=== PATIENT | male | born 1935 | race Caucasian/White ===

== ENCOUNTER → 2018-07-05 10:30 | Outpatient (CLI) | payer MEDICARE, SELFPAY ==
[2018-06-30 15:17] VITALS: BMI 36.1
--- NOTE | 2018-07-05 11:28 | RAD_ITS ---
STUDY: X-RAY CHEST REASON FOR EXAM: Male, 82 years old. Preoperative evaluation for heart catheterization. TECHNIQUE: Frontal and lateral views of the chest. COMPARISON: None. FINDINGS: The lungs are hyperexpanded. There are granulomatous calcifications. There is no demonstrated pleural abnormality. There is borderline cardiomegaly. Normal mediastinum and saji. Normal visualized pulmonary arteries. There is atherosclerotic calcification of the aortic arch with tortuosity. Normal visualized thoracic spine. Normal visualized ribs, clavicles, and shoulders. There is no demonstrated abnormality of the visualized soft tissue structures of the upper abdomen. RAD/Chest PA and Lateral IMPRESSION: Borderline cardiomegaly with hyperexpansion. No acute or active cardiopulmonary disease. Electronically Signed: Rashad Fonseca MD at 11:42 EDT , Service support ,
[2018-07-05 11:55] LABS: Partial Thromboplast Time 26.4 Seconds (24.1-36.2)
[2018-07-05 12:00] LABS: Absolute Lymphocyte Count 2.67 X10^3/ul (0.83-4.51); Basophil# 0.03 X10^3/uL; Basophil% 0.4 % (0-1); Eosinophil# 0.17 X10^3/uL; Eosinophils% 2.4 % (0-5); Hematocrit 42.5 % (40-54); Hemoglobin 14.3 g/dl (13.0-16.5); Lymphocyte # 2.67 X10^3/ul (4.0); Lymphocyte % 38.4 % (19-41); Mean Corp Hgb Conc 33.6 g/gl (32-36); Mean Corpuscular Volume 95.1 fL (80-94); Mean Platelet Vol. 10.3 fl (6.2-12.0); Monocyte% 1.4 % (0-10); Neutrophil # 3.98 X10^3/uL (2.7-7.7); Neutrophil % 57.3 % (47-70); Platelet Count 195 K/mm3 (150-450); RBC Distribution Width CV 15.4 % (11.6-14.6); RBC Distribution Width SD 51.9 fl (35.1-43.9); Red Blood Count 4.47 M/mm3 (4.6-6.2)
[2018-07-05 12:02] LABS: POSITIVE COUNT NO; POSITIVE DIFFERENTIAL NO; POSITIVE MORPHOLOGY NO
[2018-07-05 12:17] LABS: Anion Gap 7 (5-15); BUN 11 mg/dL (7-18); BUN/Creat Ratio 13.3 RATIO (10-20); Chloride 110 mmol/L (98-107); Creatinine, Serum 0.83 mg/dL (0.70-1.30); EST Glomerular Filtration Rate 94 mL/min (>60); Est Glom Filt Rate - Afr Amer 114 mL/min (>60); Glucose 87 mg/dL (74-106); Potassium 3.9 mmol/L (3.5-5.1); Sodium Level 137 mmol/L (136-145)
== END ==
PROVIDERS: Family Provider Family Medicine; PCP Family Medicine; Referring Provider Internal Medicine Cardiovascular Disease; Visit Provider Internal Medicine Cardiovascular Disease
DX: R07.9 Chest pain, unspecified (principal); I35.0 Nonrheumatic aortic (valve) stenosis; I35.1 Nonrheumatic aortic (valve) insufficiency; I34.0 Nonrheumatic mitral (valve) insufficiency; I10 Essential (primary) hypertension; E78.00 Pure hypercholesterolemia, unspecified; R09.89 Other specified symptoms and signs involving the circulatory and respiratory systems
CPT/HCPCS: 36415; 71046; 80048; 85025; 85610; 85730

== ENCOUNTER → 2018-07-08 09:00 | Day surgery (SDC) | payer MEDICARE, SELFPAY ==
[2018-06-30 15:17] VITALS: BMI 36.1
[2018-07-07 07:54] VITALS: BMI 35.9
[2018-07-08 11:55] LABS: Blood Gas Specimen Type VEN; VBG BASE EXCESS -3 mmol/L (-1.0-3.5); VBG Bicarbonate 23 mmol/L (22-26); VBG Oxygen Content 24 mmol/L (23-33); VBG PO2 35 mmHg (25-40); VBG SO2 67 % (50-70); VBG pCO2 38.1 mmHg (41-51); VBG pH 7.38 (7.32-7.42)
[2018-07-08 11:55] LABS: Base Excess -2 mmol/L (-2 to +2); Bicarbonate 22.5 mmol/L (22-26); Blood Gas Specimen Type ART; PO2 54 mmHG (75-100); SO2 87 % (95-99); Total Carbon Dioxide 24 mmol/L; pCO2 36.8 mmHg (35-45)
[2018-07-08 11:55] LABS: Blood Gas Specimen Type VEN; VBG BASE EXCESS -3 mmol/L (-1.0-3.5); VBG Bicarbonate 23 mmol/L (22-26); VBG Oxygen Content 24 mmol/L (23-33); VBG PO2 33 mmHg (25-40); VBG SO2 62 % (50-70); VBG pCO2 38.1 mmHg (41-51); VBG pH 7.38 (7.32-7.42)
[2018-07-08 11:55] LABS: Blood Gas Specimen Type VEN; VBG BASE EXCESS -3 mmol/L (-1.0-3.5); VBG Bicarbonate 22 mmol/L (22-26); VBG Oxygen Content 23 mmol/L (23-33); VBG PO2 40 mmHg (25-40); VBG SO2 75 % (50-70); VBG pCO2 36.2 mmHg (41-51)
--- NOTE | 2018-07-08 12:31 | CL.D_ITS ---
Patient Name: RICHARD MASTERS Study Date: 07/08/2018 Performing: Chaparro Cardona MD Ht: 70.07 inches 178 cm : 1935 Wt: 249.12 lbs 113 kg Age: 82 Gender: male BSA: 2.29 PROCEDURE(S) PERFORMED IH35-WIO/LHC/COR/LV CLINICAL PROFILE AND INDICATIONS Indications: Suspected CAD, Valvular Disease Heart Failure: None Stress/Imaging Stress/Image Study Performed: No Angina Classification Anginal Classification w/in 2 Weeks: CCS III CAD Presentations: Stable angina. CONCLUSIONS Right heart pressures - mildly elevated The patient has pulmonary hypertension which is mild. Intracardiac shunting: None Elevated Left Ventricular End Diastolic Pressure Normal LV size, wall motion,and systolic function LVEF: by LV gram 65 % [place] Multivessel CAD Aortic Valve Stenosis- Moderate Mitral Valve Insufficiency Mild RECOMMENDATIONS Medical therapy Surgery consult for coronary revascularization +/- AVR DESCRIPTION OF PROCEDURE The patient arrived to the procedure lab. The risks and benefits of the procedure as well as a full d escription of our services here and current unavailability of surgical backup were fully explained to the patient and/or their significant other prior to the catheterization. The Timeout was completed, verifying the correct patient and procedure. The patient's procedural site was prepped and draped in the usual fashion. Local anesthetic was given subcutaneously to right groin region with Lidocaine 2%. Using a modified Seldinger technique, arterial access was obtained via the right femoral artery, a 4 Fr sheath was inserted Venous access was obtained via the right femoral vein, a 7Fr sheath was insert ed. A 7Fr thermal dilution catheter was inserted and right heart pressures were recorded, it was then advanced to PA position for cardiac outputs. Thermal dilution cardiac outputs were then recorded. O2 saturations were then obtained. Left Ventriculography was performed in LÓPEZ projection using a 4 Fr. Pigtail catheter. LV to AO pullback pressures were then recorded. The Thermal dilution catheter was then removed. Left Coronary Artery selective angiography was performed in multiple views using a 4 Fr. JL4 catheter. Right Coronary Artery selective angiography was then performed in multip le views using a 4 Fr. JR4 catheter.The arterial sheath was pulled and manual compression applied unt il hemostasis is achieved.. The venous sheath was then pulled and manual compression applied until he mostasis achieved CORONARY ANGIOGRAPHY DOMINANCE: Right Dominant LEFT HEART ASSESSMENT Left Ventricular Ejection Fraction: by LV Gram 65 % Normal LV wall motion Elevated Left Ventricular End Diastolic Pressure LVEDP: 17 mmHg RIGHT HEART ASSESSMENT Thermal CO: 6 Thermal CI: 2.62 Pam CO: 13.05 Pam CI: 5.7 PW: 17/18 13 PA: 34/11 20 RV: 33/0 11 RA: 9/7 5 PVR: 93 SVR: 1080 Aortic Valve Area: 2.03 Aortic Valve Index: 0.89 Aortic Valve Mean Gradient: 20.3 Mitral Valve Area: 2.72 Mitral Valve index: 1.19 Mitral Valve Mean Gradient: 7.7 Right Heart pressures - elevated Pulmonary Hypertension Mild Intracardiac shunting: None LEFT MAIN: Distal: Eccentric: 25 % Stenosis LEFT ANTERIOR DESCENDING ARTERY: PROX LAD: Eccentric: 50 - 75 % Stenosis MID LAD: Mild luminal irregularities DIAGONAL 1: Proximal - 50 - 75 % Stenosis CIRCUMFLEX ARTERY: Mild luminal irregularities DISTAL CIRC: 85 % Stenosis OM 1: Proximal - 85 % Stenosis RIGHT CORONARY ARTERY: Mild luminal irregularities PROX RCA: 75 % Stenosis VALVE FINDINGS: Aortic Valve Stenosis - moderate Mitral Valve Insufficiency - Grade 1 AORTIC ROOT: Angiographically normal COMPLICATIONS No Complications PROCEDURE MEDICATIONS Versed 1 mg IV Versed 1 mg IV Oxygen: 2 L/min via nasal cannula SUMMARY OF HEMODYNAMIC DATA Time AIR REST ECG 09:24:52 RA 9 (5) SV 11:01:35 RV 33/0, 11 11:01:49 PW 17/18 (13) PV 11:02:17 PA 34/11 (20) PA 11:02:29 LV 154/0, 16 11:07:10 PW / (13) 11:07:10 LV 153/0, 17 11:07:16 PW 16/18 (13) 11:07:16 LV 157/3, 19 11:08:46 PW 18/25 (17) 11:08:46 LVp 150/8, 16 11:09:00 AOp 120/59 (86) 11:09:05 AO 124/57 (86) SA 11:09:44 PA 35/13 (23) 11:10:17 RV 38/1, 11 11:10:25 RA 12/11 (8) 11:10:37 AO 120/61 (86) 11:12:31 Valve Area (c P-P/ms Time AIR REST Mitral 2.72 7.7 mn/285 ms 11:07:10 Aortic 2.03 20.3 mn/176 ms30.0 pk/176 ms 11:09:00 Type SV CO (l/m) CI (l/m/ HR Time AIR REST Thermal 72.30 6.00 2.62 83 09:24:52 Pam 157.20 13.05 5.70 83 09:24:52 Label % O2 Pres/Loc Time AIR REST SVC 67 11:12:14 IVC 75 SV 11:14:00 PA 62 PA 11:14:08 AO 87 PV 11:14:12 Signed By Chaparro Cardona MD On 07/08/2018 12:30:36 PM Chaparro Cardona MD
== END ==
PROVIDERS: Family Provider Family Medicine; PCP Family Medicine; Referring Provider Internal Medicine Cardiovascular Disease; Visit Provider Internal Medicine Cardiovascular Disease
DX: I25.10 Atherosclerotic heart disease of native coronary artery without angina pectoris (principal); I35.0 Nonrheumatic aortic (valve) stenosis; I35.1 Nonrheumatic aortic (valve) insufficiency; I34.0 Nonrheumatic mitral (valve) insufficiency; I10 Essential (primary) hypertension; I27.20 Pulmonary hypertension, unspecified; E78.00 Pure hypercholesterolemia, unspecified; J45.909 Unspecified asthma, uncomplicated; R09.89 Other specified symptoms and signs involving the circulatory and respiratory systems; K21.9 Gastro-esophageal reflux disease without esophagitis; Z79.02 Long term (current) use of antithrombotics/antiplatelets; Z79.82 Long term (current) use of aspirin; Z79.899 Other long term (current) drug therapy
CPT/HCPCS: 82803; 93460; 99152; 99153; J7040; Q9967; C1751; C1769; C1894

== ENCOUNTER → 2018-07-20 13:45 | Outpatient (CLI) | payer MEDICARE, SELFPAY ==
[2018-06-30 15:17] VITALS: BMI 36.1
[2018-07-07 07:54] VITALS: BMI 35.9
--- NOTE | 2018-07-20 13:46 | ECHOCS_ITS ---
Reason For Study: Murmur Procedure This was a 2D Doppler, Color Flow transthoracic echocardiogram. The study was technically difficult. Contrast injection was performed. Exam performed in department. Left Ventricle Normal LV size. Mild concentric left ventricular hypertrophy. Left ventricular systolic function is normal. The estimated ejection fraction is 65 %. Diastolic function is indeterminate. No regional wall motion abnormalities noted. Right Ventricle Normal RV size. Normal systolic function. Atria The left atrium is mildly enlarged. Normal right atrium. No doppler evidence for ASD. Mitral Valve There is mild to moderate mitral annular calcification. Extension of the mitral annular calcification onto the mitral valve leaflets. Mild (1+) mitral valve insufficiency. Tricuspid Valve Normal tricuspid valve. Trivial tricuspid valve insufficiency. Right ventricular systolic pressure estimated to be 31 mmHg. Aortic Valve Trisinus/trileaflet aortic valve. Mild diffuse aortic valve thickening. Moderate diffuse aortic valve calcification. Moderate aortic stenosis. Trivial aortic valve insufficiency. Pulmonic Valve The pulmonic valve is not well visualized. Great Vessels Normal sized aortic root. Pericardium/Pleural No pericardial effusion. Medication 22 gauge I.V. with prn adaptor inserted into right arm. Diluted definity 3ml given slow IV push to enhance endocardial definition. MMode/2D Measurements & Calculations LVIDd: 4.9 cm IVSd: 1.3 cm LVOT diam: 2.1 cm LVIDs: 3.0 cm LVPWd: 1.3 cm RVDd: 3.3 cm FS: 39.9 % LVOT area: 3.5 cm2 Ao root diam: 3.5 cm LAV(MOD-bp): 45.9 ml LA A4 area: 18.1 cm2 LAV(MOD-bp) Indexed: 20.0 ml/m2 LAV(MOD-sp2): 33.4 ml LAV(MOD-sp4): 50.7 ml LA dimension(2D): 4.2 cm RA A4 area: 13.3 cm2 Doppler Measurements & Calculations MV E max santiago: 99.0 cm/sec Lat Peak E' Santiago: 6.6 cm/sec Med Peak E' Santiago: 6.9 cm/sec MV A max santiago: 112.6 cm/sec E/E' lat: 15.0 E/E' med: 14.4 MV E/A: 0.88 Ao V2 max: 338.8 cm/sec LV V1 max: 111.4 cm/sec SV(LVOT): 93.9 ml Ao max P.9 mmHg LV V1 max P.0 mmHg Ao V2 mean: 244.3 cm/sec LV V1 mean P.8 mmHg Ao mean P.5 mmHg LV V1 mean: 80.2 cm/sec Ao V2 VTI: 79.7 cm LV V1 VTI: 26.6 cm LACHO(I,D): 1.2 cm2 LACHO(V,D): 1.2 cm2 PA V2 max: 120.2 cm/sec TR max santiago: 262.6 cm/sec TR max P.6 mmHg Interpretation Summary The study was technically difficult. Contrast injection was performed. Left ventricular systolic function is normal. The estimated ejection fraction is 65 %. Mild concentric left ventricular hypertrophy. The left atrium is mildly enlarged. There is mild to moderate mitral annular calcification. Extension of the mitral annular calcification onto the mitral valve leaflets. Trivial tricuspid valve insufficiency. Moderate aortic stenosis. Trivial aortic valve insufficiency. Right ventricular systolic pressure estimated to be 31 mmHg. Diastolic function is indeterminate. Ordering Physician: Chaparro Cardona Referring Physician: Chaparro Chirinos Performed By: Ayah Castellano RDCS
== END ==
PROVIDERS: Family Provider Family Medicine; PCP Family Medicine; Referring Provider Internal Medicine Cardiovascular Disease; Visit Provider Internal Medicine Cardiovascular Disease
DX: R07.9 Chest pain, unspecified (principal); R01.1 Cardiac murmur, unspecified
CPT/HCPCS: 93306; Q9957; A4216; C8929

== ENCOUNTER → 2018-10-26 13:06 | Outpatient (CLI) | payer MEDICARE, SELFPAY ==
[2018-10-06 13:28] VITALS: BMI 36.1
[2018-10-17 11:25] VITALS: BMI 33.8
--- NOTE | 2018-10-26 13:14 | CR.HP_ITS ---
CR - History & Physical - General Arrival date:: 10/26/18 Arrival time:: 13:14 Date of Referral:: 08/26/18 Date of CR Evaluation:: 10/26/18 Referring Physician: Dr. Chaparro Cardona Primary Diagnosis: Z95.1 CABG - History of Present Cardiac Event Onset Date: Enter Onset Date of cardiac illnesses in Comment field below Current stable Angina Pectoris:: No Acute Myocardial Infarction within 12 months:: No Coronary Artery Bypass Graft:: Yes Heart valve replacement or repair:: Yes PTCA or coronary stenting:: No Heart or Heart-Lung Transplant:: No Heart Failure EF <35%:: No Were there any complications?: 08/26/2018 - Medications Home Medications: Ambulatory Orders Medication Instructions Recorded fluticasone propionate 50 1 spray INTRANASAL DAILY 06/29/18 mcg/actuation nasal spray,suspension folic acid 1 mg tablet 1 mg PO DAILY 06/29/18 lutein 40 mg capsule 40 mg PO DAILY 06/29/18 methotrexate sodium (PF) 50 mg 25 mg .ROUTE QWEEK 06/29/18 solution for injection montelukast 10 mg tablet 10 mg PO QPM 06/29/18 multivitamin tablet 1 tab PO DAILY 06/29/18 omeprazole 20 mg capsule,delayed 20 mg PO BID cap 06/29/18 release tamsulosin 0.4 mg capsule 0.4 mg PO DAILY 06/29/18 aspirin 81 mg chewable tablet 81 mg PO DAILY #30 tab 06/30/18 apixaban 5 mg tablet 5 mg PO BID 10/04/18 niacin 500 mg tablet 500 mg PO DAILY tab 10/04/18 atorvastatin 40 mg tablet 40 mg PO QHS #90 tab 10/17/18 furosemide 20 mg tablet 20 mg PO DAILY #90 tab 10/17/18 losartan 25 mg tablet 25 mg PO DAILY #90 tab 10/17/18 meclizine 25 mg tablet 25 mg PO TID PRN #30 tab 10/21/18 metoprolol tartrate 100 mg tablet 150 mg PO BID #180 tab 10/21/18 - Allergies Allergies/Adverse Reactions: Allergies adhesive tape Allergy (Intermediate, Verified 10/17/18 11:25) Rash - Sleep Disorder Evaluation Hx of Sleep Apnea: No Do you snore loudly (louder than talking or can be heard through closed doors)?: No Do you often feel tired/ fatigued/ sleepy during daytime?: No Has anyone observed you stop breathing during sleep?: No History of Hypertension (for STOP score): Yes STOP Results: Negative Advanced Directives - Advanced Directives Power of Manifest Clerk: No Living Will: No Advance Directives Information Provided: No Advance Directives on File: No DNR Order?:: No Past Medical History - Past Medical Illness Medical History: Past Medical History (Last Updated 10/04/18 @ 08:39 by Nina Kapoor) Postoperative atrial fibrillation (Resolved) I97.89, I48.91 Atherosclerotic heart disease of [place] coronary artery without angina pectoris (Chronic) I25.10 CABG x4: HOLLY to LAD, SVG to Diag, SVG to OM, SVG to RCA @ [facility] 08/26/18 Left carotid bruit (Acute) R09.89 Asthma (Chronic) J45.909 GERD (gastroesophageal reflux disease) (Chronic) K21.9 Non-rheumatic mitral regurgitation (Acute) I34.0 Non-rheumatic aortic regurgitation (Acute) I35.1 Nonrheumatic aortic (valve) stenosis (Chronic) I35.0 Pure hypercholesterolemia (Chronic) E78.00 Essential hypertension (Chronic) I10 Psoriatic arthritis L40.50 - Past Surgical History Surgical History: Past Surgical History (Last Updated 10/04/18 @ 08:39 by Nina Kapoor) History of aortic valve replacement with bioprosthetic valve (Chronic) Onset Date: ~08/26/[address] [facility] @ [facility] 08/26/18 S/P CABG x 4 (Chronic) Onset Date: ~08/26/18 Z95.1 CABG x4: HOLLY to LAD, SVG to Diag, SVG to OM, SVG to RCA @ [facility] 08/26/18 History of basal cell carcinoma excision Z98.890, Z85.828 History of hernia repair Z98.890, Z87.19 History of squamous cell carcinoma excision Z98.890, Z85.9 - Family History Summary Family History: Family History (Last Reviewed 06/30/18 @ 15:23 by Nina Kapoor) Father Myocardial infarction CAD (coronary artery disease) Mother CAD (coronary artery disease) CVA (cerebral vascular accident) Brother CAD (coronary artery disease) Social History - Smoking History Smoking Status: Former smoker Years Smokin - less than 1 year smoking a pipe Hx Tobacco Use: Yes - pipe Hx Smoking Exposure: Yes - Alcohol Use Alcohol Usage: No - Substance Abuse Hx Substance Use: No - Occupation Occupation (List type of work in comments):: Retired - Hobbies, Recreation, Social Activities Hobbies: Woodworking, Other - bake Recreational Activities: I am able to engage in most, but not all activities Social Environment - Status Marital Status: - Current Living Arrangements Living Environment:: Spouse - Children How many children do you have?: 4 Do any of your children live nearby?: Yes - Safety Do you feel safe in your surroundings?: Yes - Assistance Do you need any assistance at home?: none Review of Systems - Review of Systems Hints: Right click = Denies ([place]). Left click = Reports ([place]) Review of Present Symptoms: Reports: Shortness of Breath with Exertion, Operative Discomfort, Dizziness/Lightheadedness, Fatigue, Appetite - Normal, Appetite - Special Diet, Sleep - Normal. Denies: Shortness of Breath at Rest, PVD, Angina, Wound Healing, Heart Arrhythmia/Irregularities - A-Fib post op that is resolved, Sexual Changes - Pain Is Patient Pain Free?: No Pain Location: chest Pain Level: 05/18 Risk Factor Assessment - Vital Signs Pulse Ox: 96 - Pulse Pulse Rate: 51 Pulse Rhythm: Regular - Hypertension Blood Pressure Sitting - Left Arm: 140/70 - Diabetes Nutrition Referral for Diabetes: No - Obesity Height: 1.78 m Weight:: 107.048 kg Weight in Pounds: 236.0 lbs Body Mass Index (BMI): 33.8 Nutritional Referral for Obesity: No - Physical Inactivity Physical Inactivity: Reg Exercise 30 min/day - Risk Stratification Risk Guidelines: Moderate Risk: Risk Factor for Smoking, Risk Factor for Dyslipidemia, Risk Factor for Diabetes, Risk Factor for Obesity, Risk Factor for Hypertension, Risk Factor for Sedentary Lifestyle, Risk Factor for Depression - For Smoking Smoking Risk Guidelines: Smoking Low Risk: None or quit greater than 6 months ago. Smoking Moderate Risk: Smoker or quit 6 months or less ago. Smoking High Risk: Smoker - For Dyslipidemia Dyslipidemia Risk Guidelines: Low Risk: Moderate Risk: High Risk: 15-25% fat 25.1-29% fat >/= 30% fat. <7% sat fat 7-9% sat fat >9% sat fat. <150 mg chol 150-299 mg chol >/= 300 mg chol. LDL <100 LDL 100-129 LDL >/= 130. Chol/HDL ratio <5.0 Chol/HDL ratio 5.0-6.0 Chol/HDL ratio >6.0. Triglycerides <100 Triglycerides 100-149 Triglycerides >/= 150 - For Diabetes Mellitus Diabetes Risk Guidelines: Diabetes Low Risk: HgA1c <6.5% and/or FBG <120. Diabetes Moderate Risk: HgA1c 6.6-7.9% and/or FBG 120-180. Diabetes High Risk: HgA1c >/= 8% and/or FBG >180 - For Obesity/Overweight Obesity/Overweight Risk Guidelines: Obesity Low Risk: BMI <25.0. Obesity Moderate Risk: BMI 25-29.9. Obesity High Risk: BMI >/= 30.0 - For Hypertension Hypertension Risk Guidelines: Hypertension Low Risk: Systolic <120 and Diastolic <80. Hypertension Moderate Risk: Systolic 120-139 and Diastolic 80-89. Hypertension High Risk: Systolic >/= 140 and Diastolic >/= 90 - For Sedentary Lifestyle Sedentary Lifestyle Risk Guidelines: Sedentary Lifestyle Low Risk: >/= 1,500 kcal/week. Sedentary Lifestyle Moderate Risk: 700-1,499 kcal/week. Sedentary Lifestyle High Risk: < 700 kcal/week - For Depression Depression Risk Guidelines: Depression Low Risk: Not clinically depressed. Depression Moderate Risk: Mildly depressed. Depression High Risk: Clinically depressed - Family History Family History: Family History (Last Reviewed 06/30/18 @ 15:23 by Nina Kapoor) Father Myocardial infarction CAD (coronary artery disease) Mother CAD (coronary artery disease) CVA (cerebral vascular accident) Brother CAD (coronary artery disease) Motivation - Motivation to Participate On a scale of 1 to 10, how prepared are you to commit to attending program?: 10 What do you see as barriers to successfully being able to complete the program?: none What do you see as the benefits of succesfully completing the program? In other words, what do you hope to get out of participating in the program?: improved health Are there issues you are dealing with that will interfere with completing the program?: none Do you have a spouse or signficant other, family or friends who will help support you to complete the program?: spouse
--- NOTE | 2018-10-26 13:14 | PCM.CR.ITP ---
General Information - General Information Admitting Diagnosis: Z95.1 - Education/Goals Barriers to Learning: None Cardiac Rehabilitation Goals: 1. Maintain the individual as the primary focus of care. 2. To improve the patient's quality of life. 3. Identification of cardiac risk factors and provide cardiac risk factor management. 4. Enhance the psychosocial status of the patient. 5. Reconditioning enough to allow the patient to resume customary activities. 6. Control symptoms of cardiac disease Scale for measuring improvement of personal goals: Enter appropriate number in Comments. 2 = Unchanged. 3 = Slightly Better. 4 = Moderate Improvement. 5 = Met my Goal Personal Goals: Initial Assessment: Improve energy level, Participate in home exercise program, Improve knowledge of cardiac disease, Improve muscle strength and endurance, Improve diet and eating habits (eat healthier) Exercise - Initial Assessment - Visit Date of Eval: 10/26/18 - Initial Eval - Stages of Change Stages of Change:: Contemplate - Physician Prescribed Exercise Modalities: Treadmill, Biodyne, Airdyne, NuStep, SciFit Frequency (days/week): 3x/week for 12 weeks [36 sessions] Duration (Minutes):: 30-45 Intensity: 60-80% age predicted maximum heart rate reserve METs - Progression: 0.5-1.0 MET, RPE 11-14 WEEK: 2.5 Target Heart Rate:: 90-116 - Hypertension Do any of the following apply?: Yes Resting Blood Pressure:: 140/70 - Intervention Home Exercise/Activity Goal:: Sitting Time <3 hrs/day - Education Goals:: Warm-up, RPE SARAH Scale, S/S, Safe Exercise, Self-Monitoring - Exercise Program Goals Exercise Program Goals: Aerobic Activity >30 min, B/P <130/80 Nutrition - Initial Assessment - Program Goals Nutrition Program Goals: LDL <70. Total Cholesterol <200. HDL >45. Triglycerides <150. HgbA1C <7%. BMI <25 - Visit Date of Assessment:: 10/26/18 - Stages of Change Stages of Change:: Action - Diabetes Diabetes:: No - Weight Management Height: 1.78 m Weight:: 107.048 kg Total Score:: 4 - Intervention Referral to dietitian:: No Referral to Diabetic Clinic:: No Will attend diet classes:: Yes - Education Gave educational materials for:: Signs & symptoms of hypoglycemia, Signs & symptoms of hyperglycemia, Relate diabetes to coronary artery disease, Healthy eating Tobacco - Initial Assessment - Program Goals Tobacco Program Goals: Complete smoking cessation. Attend education classes. Improve Knowledge Test score - Stage of Change Stages of Change:: Action - Learning Barriers Total Score:: 15 - Family Support Do you have family support?: Yes - Tobacco Use Tobacco Use: Non-smoker How long ago did you quit using tobacco products?: Greater than or equal to 6 months ago Do you use smokeless tobacco?: No - Intervention Smoking Cessation Referral:: No Individual Education/Counseling:: No Education Schedule Given:: Yes - Education Attended class for:: Treating Heart Disease, How The Heart Works, What it means to have Heart Disease, How Coronary Artery Disease is Diagnosed, Heart Procedures, What Heart Medications Do, Risk Factors & Modifications, Living an Active Life, Nutrition, Emotions & Heart Disease, Stress Management & Relaxation, Sleep Disorders & Heart Disease Psychosocial - Initial Assess - Target Goals Target Goals: Assess presence or absence of depression. Using a valid screening tool, maximizes coping skills. Positive support system - Stages of Change Stages of Change:: Action - Psychosocial Test Tool Used:: HANDS Depression Questionnaire Total Mood Screening Score:: 6 Self-Efficacy Score:: 7 - Intervention PS - Interventions: Yes Attend Stress Management Classes, Yes Uses Stress Management Skills, No Referral to Mental Health, No Referral to [facility] Case Management, No Referral to Physician - Education Gave educational materials for:: Coping techniques, Signs & symptoms of depression, Stress management, Relaxation techniques - Assistive Devices Assistive Devices:: Walker Fall Risk Assessed:: Yes Patient Health Questionnaire Initial Assessment 1. Little interest or pleasure in doing things: Several days 2. Feeling down, depressed, or hopeless: Several days 3. Trouble falling or staying asleep, or sleeping too much: Several days 4. Feeling tired or having little energy: Several days 5. Poor appetite or overeating: Several days 6. Feeling bad about yourself -- or that you are a failure or have let yourself or your family down: Not at all 7. Trouble concentrating on things, such as reading the newspaper or watching television: Several days 8. Moving or speaking so slowly that other people could have noticed. Or the opposite - being so fidgety or restless that you have been moving around a lot more than usual: Not at all 9. Thoughts that you would be better off , or of hurting yourself in some way: Not at all How difficult have these problems made it for you to do your work, take care of things at home, or get along with other people?: Somewhat difficult Total Score: 6 MAURI-Q SV Test - Statements CAD is a disease of the arteries in the heart: I Don't Know Examples of risk factors for heart disease: True Angina is chest pain or discomfort: True The benefits of resistance training include: True Eating more meat and dairy products: True Anti-platelet medications such as aspirin are important: True The only effective way to manage stress: False An exercise warm-up slowly increases heart rate: True Prepared, processed foods usually have high sodium: True Depression is common after a heart attack: True The statin medications lower cholesterol: True To control blood pressure, lower the amount of sodium: True If someone gets chest discomfort during walking: False Transfats are partially hydrogenated vegetable oils: I Don't Know Sleep apnea that is not treated increases the risk: I Don't Know To control cholesterol, one should become a vegetarian: False Someone knows if he/she is exercising at the right level: I Don't Know Diabetes cannot be prevented with exercise & health eating: False Stress is a large risk for heart attack: True A diet that can help lower blood pressure is rich in: True - Total Score Total Correct Responses: 15 Self-Efficacy Initial Assessment We would like to know how confident you are in doing certain activities. Please select your confidence level for:: Select your confidence level for the following using the scale 1-10 where 1 is not at all confident and 10 is totally confident. Your score is the average of all 6 responses. Fatigue: How confident are you that you can keep the fatigue caused by your disease from interfering with the things you want to do? Select Number: 8 Physical Discomfort or Pain: How confident are you that you can keep the physical discomfort or pain of your disease from interfering with the things you want to do? Select Number: 8 Emotional Distress: How confident are you that you can keep the emotional distress caused by your disease from interfering with the things you want to do? Select Number: 8 Other Symptoms or Health Problems: How confident are you that you can keep other symptoms or health problems from interfering with the things you want to do? Select Number: 7 Different Tasks and Activities: How confident are you that you can do the different tasks and activities needed to manage your health condition so as to reduce your need to see a doctor? Select Number: 7 Medication: How confident are you that you can do things other than just taking medication to reduce how much your illness affects your everyday life? Select Number: 8 Total Score:: 7 Nutrition Survey - Nutrition Survey Instructions Scoring Instructions: Scoring is as follows: Yes = 1 points. No = 0 point. Patient score that is >/=12 is considered to be at potential nutritional risk and could benefit from a referral to a registered dietitian. - Nutrition Survey Initial Have you lost >10 lbs over the past 2 months without trying?: Yes Are you following a special diet at home for diabetes, low fat, or low salt?: Yes Are you interested in meeting with a dietitian for help understanding your diet?: No Do you eat less than 3 meals a day?: Yes Do you eat fatty meats (perez, sausage, ribs, etc), fried foods, desserts, large amounts of salad dressings, margarine, butter, or cheese most days?: No Do you have food allergies? [Enter types in comment field]: No Do you eat in restaurants more than 3 times a week?: No Do you season food with salt, seasoning salt, or garlic salt?: Yes Do you used canned, boxed, frozen meals, or soups, seasoning packets?: No Total Score:: 4
[2018-10-26 14:29] VITALS: BP 140/70
[2018-10-26 14:30] VITALS: BP 140/70; PULSE 51; O2SAT 96; BMI 33.8
== END ==
PROVIDERS: Family Provider Family Medicine; PCP Family Medicine; Referring Provider Internal Medicine Cardiovascular Disease; Visit Provider Internal Medicine Cardiovascular Disease
DX: Z95.1 Presence of aortocoronary bypass graft (principal)

== ENCOUNTER 2018-11-02 13:00 | Outpatient (RCR) | payer MEDICARE, SELFPAY ==
[2018-10-26 14:22] VITALS: BMI 33.8
== END 2018-11-07 23:59 ==
LOC: CR 13:00
PROVIDERS: Family Provider Family Medicine; PCP Family Medicine; Referring Provider Internal Medicine Cardiovascular Disease; Visit Provider Internal Medicine Cardiovascular Disease
DX: I25.10 Atherosclerotic heart disease of native coronary artery without angina pectoris (principal); Z95.1 Presence of aortocoronary bypass graft
CPT/HCPCS: 93798

== ENCOUNTER 2020-03-15 14:24 | Outpatient (RCR) | payer MEDICARE, SELFPAY ==
[2020-03-01 09:33] VITALS: BMI 34.3
== END 2020-03-15 23:59 ==
LOC: IMMUN 14:24
PROVIDERS: PCP Family Medicine; Referring Provider Family Medicine; Visit Provider Family Medicine
DX: Z23 Encounter for immunization (principal)
CPT/HCPCS: 0011A; 0012A

== ENCOUNTER → 2020-07-31 13:55 | Outpatient (CLI) | payer MEDICARE, SELFPAY ==
[2020-03-01 09:33] VITALS: BMI 34.3
--- NOTE | 2020-07-31 13:57 | ECHOCS_ITS ---
Reason For Study: Valve Replacement Eval Procedure This was a 2D Doppler, Color Flow transthoracic echocardiogram. The study was technically difficult. Contrast injection was performed. Exam performed in department. Left Ventricle Normal LV size. Left ventricular systolic function is normal. The estimated ejection fraction is 70 %. Diastolic function is indeterminate. No regional wall motion abnormalities noted. Right Ventricle Normal RV size. Normal systolic function. Atria The left atrium is mildly enlarged. Normal right atrium. No doppler evidence for ASD. Mitral Valve There is moderate mitral annular calcification. Extension the mitral annular calcification on the base of the posterior mitral valve leaflet. Mild-Moderate (1-2+) mitral valve insufficiency. Tricuspid Valve Normal tricuspid valve. Mild tricuspid valve insufficiency. Right ventricular systolic pressure estimated to be 33 mmHg. Aortic Valve Stable appearing bioprosthetic aortic valve apparatus. Pulmonic Valve The pulmonic valve is not well visualized. Great Vessels Normal sized aortic root. Pericardium/Pleural No pericardial effusion. Medication Diluted definity 3ml given slow IV push to enhance endocardial definition. MMode/2D Measurements & Calculations LVIDd: 4.7 cm IVSd: 1.2 cm LVOT diam: 2.0 cm LVIDs: 2.6 cm LVPWd: 1.1 cm RVDd: 4.5 cm FS: 43.5 % LVOT area: 3.1 cm2 Ao root diam: 3.7 cm LAV(MOD-bp): 50.7 ml LVAd ap4: 30.4 cm2 LAV(MOD-bp) Indexed: 22.5 ml/m2 LVLd ap4: 7.8 cm LAV(MOD-sp2): 52.6 ml EDV(MOD-sp4): 97.4 ml LAV(MOD-sp4): 51.2 ml EDV(sp4-el): 100.8 ml LVAs ap4: 15.5 cm2 LVLs ap4: 6.9 cm ESV(MOD-sp4): 31.3 ml ESV(sp4-el): 29.5 ml EF(MOD-sp4): 67.9 % EF(sp4-el): 70.7 % SV(MOD-sp4): 66.1 ml SV(sp4-el): 71.3 ml LA A4 area: 18.2 cm2 LA dimension(2D): 4.6 cm RA A4 area: 17.3 cm2 Doppler Measurements & Calculations MV E max santiago: 113.6 cm/sec Lat Peak E' Santiago: 9.6 cm/sec Med Peak E' Santiago: 7.7 cm/sec MV A max santiago: 95.1 cm/sec E/E' lat: 11.8 E/E' med: 14.7 MV E/A: 1.2 Ao V2 max: 248.7 cm/sec LV V1 max: 137.3 cm/sec SV(LVOT): 92.4 ml Ao max P.8 mmHg LV V1 max P.6 mmHg Ao V2 mean: 171.9 cm/sec LV V1 mean P.2 mmHg Ao mean P.3 mmHg LV V1 mean: 97.2 cm/sec Ao V2 VTI: 54.0 cm LV V1 VTI: 30.2 cm LACHO(I,D): 1.7 cm2 LACHO(V,D): 1.7 cm2 PA V2 max: 111.9 cm/sec TR max santiago: 272.1 cm/sec TR max P.6 mmHg ECHO/Echo Complete W/ Contrast Interpretation Summary The study was technically difficult. Contrast injection was performed. Left ventricular systolic function is normal. The estimated ejection fraction is 70 %. The left atrium is mildly enlarged. There is moderate mitral annular calcification. Extension the mitral annular calcification on the base of the posterior mitral valve leaflet. Mild-Moderate (1-2+) mitral valve insufficiency. Mild tricuspid valve insufficiency. Stable appearing bioprosthetic aortic valve apparatus. Right ventricular systolic pressure estimated to be 33 mmHg. Diastolic function is indeterminate. Ordering Physician: Chaparro Cardona Referring Physician: Chaparro Chirinos Performed By: Jessica Hernandez, LIANA, RVT
== END ==
PROVIDERS: PCP Family Medicine; Referring Provider Internal Medicine Cardiovascular Disease; Visit Provider Internal Medicine Cardiovascular Disease
DX: I25.10 Atherosclerotic heart disease of native coronary artery without angina pectoris (principal)
CPT/HCPCS: 93306; Q9957; A4216; C8929; J3490

== ENCOUNTER 2024-02-21 12:32 | Inpatient (IN) | payer MEDICARE, SELFPAY ==
[2024-02-21] VITALS (11 sets, daily range): BP systolic 129–149; BP diastolic 64–97; PULSE 79–95; RESP 11–26; TEMP 36.4–36.9; O2SAT 93–100; BMI 28.7; BMI 28.8
[2024-02-21 13:54] LABS: Hematocrit 32.4 % (40-54); Hemoglobin 10.6 g/dL (13.0-16.5); Mean Corp Hgb Conc 32.7 g/dL (32-36); Mean Corpuscular Hgb 29.9 pg (27.0-32.0); Mean Corpuscular Volume 91.5 fL (80-94); Mean Platelet Vol. 10.8 fl (6.2-12.0); POSITIVE COUNT YES; POSITIVE MORPHOLOGY YES; Platelet Count 283 K/mm3 (150-450); RBC Distribution Width CV 16.9 % (11.6-14.6); RBC Distribution Width SD 55.3 fl (35.1-43.9); Red Blood Count 3.54 M/mm3 (4.6-6.2)
--- NOTE | 2024-02-21 13:54 | RAD_ITS ---
STUDY: X-RAY CHEST REASON FOR EXAM: Male, 88 years old. Cough and shortness of breath. TECHNIQUE: AP and lateral views of the chest. COMPARISON: Comparison is made with prior study July 05, 2018. FINDINGS: EKG electrodes are seen. There are small bilateral pleural effusions slightly more prominent on the left side with left basilar atelectasis and/or infiltrate. Sternal cerclage wires are present from a prior sternotomy. Prior aortic valve replacement. Cardiomegaly. Normal mediastinum and saji. Normal visualized pulmonary arteries. There is atherosclerotic calcification of the aortic arch with tortuosity. There is demineralization of the osseous structures. There is degenerative osteoarthritis of the bilateral shoulders. There is no demonstrated abnormality of the visualized soft tissue structures of the upper abdomen. RAD/Chest PA and Lateral IMPRESSION: Small bilateral pleural effusions left greater than right with findings suggestive of atelectasis and/or early infiltrate at the left lung base. Electronically Signed: Alberto Ramesh MD at 14:18 EST ,
[2024-02-21 14:10] LABS: ALB/GLOB Ratio 0.5 RATIO (0.9-2.4); AST(SGOT) 51 U/L (15-37); Alanine Aminotransfer ALT/SGPT 57 U/L (16-61); Albumin, Serum 2.4 g/dL (3.2-5.0); Alkaline Phosphatase 148 U/L (45-117); Anion Gap 6 (5-15); BUN 11 mg/dL (7-18); BUN/Creat Ratio 12.6 RATIO (10-20); Calcium,Total 9.7 mg/dL (8.5-10.1); Chloride 106 mmol/L (98-107); Creatinine, Serum 0.87 mg/dL (0.70-1.30); EST Glomerular Filtration Rate 87 mL/min (>60); Est Glom Filt Rate - Afr Amer 106 mL/min (>60); Globulin 4.4 g/dL (2.2-4.2); Glucose 91 mg/dL (74-106); Potassium 4.2 mmol/L (3.5-5.1); Protein, Total 6.8 g/dL (6.4-8.2); Sodium Level 137 mmol/L (136-145)
[2024-02-21 14:23] LABS: Differential Indicated MANUAL DIFF
[2024-02-21 14:27] LABS: Eosinophil 3 % (0-5); Lymphocyte 47 % (19-41); Metamyelocyte 13 % (0-1); Monocyte 3 % (0-10); Myelocyte 1 % (0-0); Neutrophil-Band 3 % (0-5); Neutrophil-Segmented 30 % (47-70); Total Cells Counted 100 (MANUAL DIFF)
[2024-02-21 14:28] LABS: Platelet Estimate ADEQUATE (ADEQ)
[2024-02-21 14:29] LABS: Ovalocyte RARE; Polychromasia RARE
[2024-02-21 14:30] LABS: Absolute Lymphocyte Count 5.17 X10^3/uL (0.83-4.51); Absolute Neutrophil Count 3.6 X10^3/uL (2.0-7.7)
--- NOTE | 2024-02-21 15:26 | EDS_ITS ---
HPI History of Present Illness Chief Complaint: Weakness Detail of Chief Complaint: Increasing generalized weakness and family unable to care for him Informant: family and EMS Limited: other (Memory impairment. There is no history of dementia.) Onset/Context/Timing Onset: Weeks Context: Gradual Onset Timing: Continuous Quality: Generalized weakness, decreased p.o. intake both liquid and solids, see HPI Location: Generalized Current Severity: Moderate Maximum Severity: Moderate Worsened by: Uncertain Relieved by: Nothing Associated Symptoms Associated Symptoms: Patient is not certain why he was brought to the emergency department. Narrative Narrative: Patient is an elderly male who lives with family. He is awake but not alert and slow to response. His responses are appropriate. He denies headache. Denies double vision blurred vision loss of vision. He denies abdi ears decreased hearing. He denies trouble with speech or swallowing. He denies chest discomfort. He denies cough or shortness of breath. He denies PND. He denies orthopnea. He denies abdominal pain. He denies vomiting or diarrhea. He denies dysuria, frequency, urgency or hematuria. If anything he has decreased urine output. Prior similar symptoms: No Recent Illness/Hospitalization: No [facility] Medical History (Updated 02/21/24 @ 15:[address] 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 Left carotid bruit Psoriatic arthritis Asthma GERD (gastroesophageal reflux disease) Non-rheumatic mitral regurgitation Non-rheumatic aortic regurgitation Nonrheumatic aortic (valve) stenosis Pure hypercholesterolemia Essential hypertension Home Medications ?Medication ?Instructions ?Recorded ?Last Taken ?Type folic acid 1 mg tablet 1 mg PO DAILY 06/29/18 Unknown History lutein 40 mg capsule 40 mg PO DAILY 06/29/18 Unknown History montelukast 10 mg tablet 10 mg PO QPM 06/29/18 Unknown History omeprazole 20 mg capsule,delayed 20 mg PO BID 06/29/18 Unknown History release tamsulosin 0.4 mg capsule 0.4 mg PO DAILY 06/29/18 Unknown History niacin 500 mg tablet 500 mg PO DAILY 10/04/18 Unknown History atorvastatin 40 mg tablet 40 mg PO QHS #90 tabs 10/17/18 Unknown Rx losartan 50 mg tablet 50 mg PO BID #180 tabs 12/29/18 Unknown Rx metoprolol tartrate 100 mg tablet 100 mg PO BID #180 tabs 12/29/18 Unknown Rx aspirin 81 mg tablet,delayed 81 mg PO DAILY #90 tabs 01/04/19 Unknown Rx release (Adult Aspirin Regimen) spironolactone 25 mg tablet 25 mg PO DAILY 06/07/19 Unknown History acetaminophen 325 mg tablet 650 mg PO Q6H PRN fever or pain 03/01/20 Unknown History (Tylenol) amlodipine 2.5 mg tablet 2.5 mg PO DAILY 03/01/20 Unknown History antiarthritic combination no.2 900 900 mg PO DAILY 03/01/20 Unknown History mg tablet (glucosamine-chondroitin) potassium chloride 20 mEq 20 meq PO DAILY 03/01/20 Unknown History tablet,extended release buspirone 5 mg tablet 5 mg PO BID 02/21/24 Unknown History levocetirizine 5 mg tablet 5 mg PO DAILY 02/21/24 Unknown History methotrexate sodium 25 mg/mL 50 mg subcut QWEEK 02/21/24 Unknown History injection solution pyridoxine (vitamin B6) 100 mg 100 mg PO DAILY 02/21/24 Unknown History tablet Allergy/AdvReac Type Severity Reaction Status Date / Time adhesive tape Allergy Intermediate Rash Verified 02/21/24 12:32 Family History Father Myocardial infarction CAD (coronary artery disease) Mother CAD (coronary artery disease) CVA (cerebral vascular accident) Brother CAD (coronary artery disease) Surgical History (Updated 02/21/24 @ 15:[address] Lonnie Dye MD) History of coronary artery bypass surgery (~08/26/18) History of aortic valve replacement with bioprosthetic valve (~08/26/18) History of hernia repair History of squamous cell carcinoma excision History of basal cell carcinoma excision Social History Smoking Status: Never smoker Smokeless tobacco user: other alcohol intake: never substance use type: does not use caffeine: No ROS ROS ED Constitutional Constitutional ED: Denies chills, fever(s) or subjective Eyes Eyes: Denies blurry vision or change in vision ENT ENT ED: Denies ear pain, rhinorrhea or sore throat Cardiovascular Cardiovascular: Denies chest pain or palpitations Respiratory/Chest Respiratory/Chest: Denies cough, dyspnea or dyspnea on exertion Gastrointestinal Gastrointestinal: Denies abdominal pain, diarrhea, melena or vomiting Genitourinary Genitourinary ED: Denies dysuria, hematuria or urinary frequency Musculoskeletal Musculoskeletal: Denies arthralgias or myalgias Integumentary Denies rash Neurologic Neurologic: Reports weakness; Denies headache(s) Psychiatric Psychiatric: Reports depression Hematologic/Lymphatic Hematologic/Lymphatic: Reports systems reviewed and no addt'l complaints, except as documented EXAM Physical Exam Const Vital Signs: 02/21/24 12:33 02/21/24 12:43 02/21/24 14:32 Temperature 97.6 F L Temperature Source Oral Pulse Rate 79 89 Respiratory Rate 11 L 20 H Respiratory Effort Normal Respiratory Pattern Normal Blood Pressure 149/97 H Blood Pressure Mean 114 Pulse Ox 98 93 Oxygen Delivery Method Room Air Room Air Positive well nourished and well developed General Appearance ED: well developed, NAD and pallor; Negative for cyanotic or diaphoretic HEENT Reports moist mucous membranes HEENT Narrative: Head is atraumatic normocephalic. Ears normal. Nares patent. Posterior without erythema or exudate. Eyes PERRL and EOMs intact bilaterally General Eye ED: Negative for pale conjunctiva or scleral icterus Neck no lymphadenopathy, supple and no JVD Chest Wall inspection of chest normal Resp normal respiratory effort and clear to auscultation bilaterally Cardio regular rate, regular rhythm, S1 normal heart sound, S2 normal heart sound and no murmurs GI normal to inspection, nondistended, normoactive bowel sounds, non-tender, non- distended and no masses; Negative for hepatosplenomegaly Back/Spine no CVA tenderness Extremity General Extremety ED: Yes edema General Extremity: edema Neuro oriented x3 and CN's II-XII intact bilaterally Neuro Narrative: Patient is awake but not alert. He moves all of his extremities. Negative negra nus or Babinski sign. Sensorium / Orientation: Negative for alert Psych Mood & Affect: depressed Skin no rashes or lesions noted and no wounds General Skin Exam: pallor; Negative for jaundice MDM MDM MDM Narrative Medical decision making narrative: Patient with generalized decline over couple of weeks with decreased p.o. intake. Will obtain blood work to assess for metabolic or infectious cause. Will obtain a UA. Case management did see patient. Maranda states that family is unable to care for him. He will need precertification for placement in assisted which is the wish of the family. History & Record Review Discussion w/independent historian: Patient and Family Additional record(s) reviewed:: Prior outpatient record (Office visit by Dr. Cardona May 2019.) and Prior labs Lab Data Attestation: I reviewed the patient's lab results. Lab results narrative: White count is normal. Patient is mildly anemic with normal indices. Differential reveals predominant lymphocytes. There is also metamyelocytes. There is also 1 myelocytes. Comprehensive metabolic panel reveals elevated alk phos of 148 which is mildly elevated. Otherwise the comprehensive metabolic panel is unremarkable. Labs: Laboratory Results - last 24 hr 02/21/24 13:40 WBC 11.0 RBC 3.54 L Hgb 10.6 L Hct 32.4 L MCV 91.5 MCH 29.9 MCHC 32.7 RDW Std Deviation 55.3 H RDW Coeff of Yony 16.9 H Plt Count 283 MPV 10.8 Neut % (Auto) Not Reportable Absolute Neuts (auto) 3.6 Absolute Lymphs (auto) 5.17 H Total Counted 100 Neutrophils % (Manual) 30 L Band Neutrophils % 3 Lymphocytes % (Manual) 47 H Monocytes % (Manual) 3 Eosinophils % (Manual) 3 Metamyelocytes % 13 H Myelocytes % 1 H Diff Path Review May foll Platelet Estimate ADEQUATE Polychromasia RARE Ovalocytes RARE Sodium 137 Potassium 4.2 Chloride 106 Carbon Dioxide 25.0 Anion Gap 6 BUN 11 Creatinine 0.87 Estim Creat Clear Calc 65.30 Est GFR (MDRD) Af Amer 106 Est GFR (MDRD) Non-Af 87 BUN/Creatinine Ratio 12.6 Glucose 91 Calcium 9.7 Total Bilirubin 0.50 AST 51 H ALT 57 Alkaline Phosphatase 148 H Total Protein 6.8 Albumin 2.4 L Globulin 4.4 H Albumin/Globulin Ratio 0.5 L Radiography Chest X-Ray - ED: 2 View and Read by ED Physician (Chest x-ray reveals small pleural effusion on the left question right. There is probably atelectasis. There is no obvious infiltrate. Cardiac size is normal. Hilum is unremarkable. Osseous structures reveal no acute pathology.) Diagnostic Testing: Clinical Impression(s) from Imaging Studies Chest X-Ray 02/21/24 13:54 IMPRESSION: Small bilateral pleural effusions left greater than right with findings suggestive of atelectasis and/or early infiltrate at the left lung base. Electronically Signed: Alberto Ramesh MD at 14:18 EST , Management Discussion w/another healthcare provider: Hospitalist (Because of the lymphocytosis myelocytes and metamyelocytes Dr. Benavidez will obtain CT of the chest abdomen and pelvis looking for malignancy possible lymphoma. Patient to be admitted as failure to thrive as an observation patient on [facility].) and Assistant Executive Housekeeper (Documented MDM portion of the EMR.) Discharge Plan Dx/Rx/DC Orders Clinical Impression: Debility, History of aortic valve replacement with bioprosthetic valve, History of coronary artery bypass surgery, Pure hypercholesterolemia, GERD (gastroesophageal reflux disease), Elevated blood pressure reading with diagnosis of hypertension, Atypical lymphocytosis Disposition Disposition: Acute Care Hospital [facility]
--- NOTE | 2024-02-21 15:49 | CT_ITS ---
EXAM: CT CHEST, ABDOMEN AND PELVIS WITHOUT INTRAVENOUS CONTRAST CLINICAL INDICATION: lymphocytosis TECHNIQUE: Helically acquired images were obtained of the chest, abdomen and pelvis without intravenous contrast. This CT exam was performed using one or more of the following dose reduction techniques: automated exposure control, adjustment of the mA and/or kV according to patient size, and/or use of iterative reconstruction technique. COMPARISON: No relevant prior studies available. FINDINGS: CHEST: LUNGS AND PLEURAL SPACES: There is a small pleural-based consolidation in the basilar segment of the left upper lobe and measures 1.6 x 0.8 x 1.5 cm. There are small bilateral pleural effusions. No mass. No pneumothorax. HEART: There are moderate coronary artery calcifications present. Heart size is normal. No pericardial effusion. MEDIASTINUM: Unremarkable. No mediastinal or hilar adenopathy. Esophagus is unremarkable. No hiatal hernia. THYROID: Unremarkable. No thyroid lesions. ABDOMEN: LIVER: Unremarkable. Homogeneous. GALLBLADDER AND BILE DUCTS: Unremarkable. No calcified gallstones. No gallbladder distention or wall edema. No intra- or extrahepatic biliary ductal dilation. PANCREAS: Unremarkable. No focal cystic mass. SPLEEN: Unremarkable. Normal size without focal cystic or solid mass. ADRENALS: Unremarkable. No nodules. KIDNEYS AND URETERS: There is a simple cyst in the left kidney. No follow-up imaging is needed. Normal renal size and position. No hydronephrosis. STOMACH AND BOWEL: Unremarkable. No stomach or bowel distention. No focal inflammatory change. PELVIS: APPENDIX: No evidence of acute appendicitis. BLADDER: Unremarkable. REPRODUCTIVE: Unremarkable as visualized. No mass. CHEST, ABDOMEN and PELVIS: INTRAPERITONEAL SPACE: Unremarkable. No ascites or other fluid collection. No free air. BONES/JOINTS: Unremarkable. No suspicious lytic or blastic abnormality. SOFT TISSUES: Unremarkable. No discrete abdominal or pelvic wall hernia. VASCULATURE: See above. LYMPH NODES: Unremarkable. No enlarged lymph nodes. CT/CT Chest, Abd, Pelvis WO Cont IMPRESSION: Small bilateral pleural effusions. There is a pleural-based density in the basilar segment of the left upper lobe which may represent atelectasis. There are no acute abnormalities in the abdomen or pelvis. Electronically Signed: Valdemar Casanova MD at 16:57 EST ,
--- NOTE | 2024-02-21 15:50 | ED.RN ---
1529: PT. FOUND W/ IV UNINTENTIONALLY DISCONTINUED AND STICKING TO BLANKETS AT THIS TIME. POST SITE-INTACT. NEW BANDAGE PLACED. NEW IV PLACED.
--- NOTE | 2024-02-21 15:50 | PCM.HP.STD ---
HPI - General General Date of Admission: 02/21/24 Date of Service: 02/21/24 Chief Complaint: Worsening weakness HPI Narrative RICHARD MASTERS, is a 88 M who presented to the emergency department at [facility] on 02/21/2024 with worsening weakness. All of my history is obtained from the emergency department note as the patient was unable to answer questions consistently due to confusion and family had left the emergency department. Per documentation, the patient was brought in for generalized weakness, decreased p.o. intake to do for liquids and solids and family was unable to care for him at home. Vital signs on presentation showed temperature of 96.6, heart rate 79, respiratory rate 11, blood pressure was 149/97 and pulse ox was 98% on room air. CBC showed a normocytic anemia with a hemoglobin of 10.6 but baseline is unclear as he said no recent lab. His differential showed an elevation of absolute lymphocytes and neutropenia with lymphocytosis of 47% and metamyelocytes and myelocytes present. Chemistry panel was overtly unremarkable other than a mildly elevated AST. UA was completely unremarkable. Chest x-ray shows small bilateral effusions left greater than right suggestive of atelectasis or early infiltrate in the left lung base. Given his abnormal differential/lymphocytosis a CT of the abdomen and pelvis was performed and showed small pleural-based consolidation in the basilar segment of the left upper lobe with no mass, moderate coronary artery calcification, no adenopathy and no other acute abnormalities. [facility] Medical History (Updated 02/21/24 @ 20:[address] 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 Left carotid bruit Psoriatic arthritis Asthma GERD (gastroesophageal reflux disease) Non-rheumatic mitral regurgitation Non-rheumatic aortic regurgitation Nonrheumatic aortic (valve) stenosis Pure hypercholesterolemia Essential hypertension Home Medications ?Medication ?Instructions ?Recorded ?Last Taken ?Type folic acid 1 mg tablet 1 mg PO DAILY 06/29/18 Unknown History lutein 40 mg capsule 40 mg PO DAILY 06/29/18 Unknown History montelukast 10 mg tablet 10 mg PO QPM 06/29/18 Unknown History omeprazole 20 mg capsule,delayed 20 mg PO BID 06/29/18 Unknown History release tamsulosin 0.4 mg capsule 0.4 mg PO DAILY 06/29/18 Unknown History niacin 500 mg tablet 500 mg PO DAILY 10/04/18 Unknown History atorvastatin 40 mg tablet 40 mg PO QHS #90 tabs 10/17/18 Unknown Rx losartan 50 mg tablet 50 mg PO BID #180 tabs 12/29/18 Unknown Rx metoprolol tartrate 100 mg tablet 100 mg PO BID #180 tabs 12/29/18 Unknown Rx aspirin 81 mg tablet,delayed 81 mg PO DAILY #90 tabs 01/04/19 Unknown Rx release (Adult Aspirin Regimen) spironolactone 25 mg tablet 25 mg PO DAILY 06/07/19 Unknown History acetaminophen 325 mg tablet 650 mg PO Q6H PRN fever or pain 03/01/20 Unknown History (Tylenol) amlodipine 2.5 mg tablet 2.5 mg PO DAILY 03/01/20 Unknown History antiarthritic combination no.2 900 900 mg PO DAILY 03/01/20 Unknown History mg tablet (glucosamine-chondroitin) potassium chloride 20 mEq 20 meq PO DAILY 03/01/20 Unknown History tablet,extended release buspirone 5 mg tablet 5 mg PO BID 02/21/24 Unknown History levocetirizine 5 mg tablet 5 mg PO DAILY 02/21/24 Unknown History methotrexate sodium 25 mg/mL 50 mg subcut QWEEK 02/21/24 Unknown History injection solution pyridoxine (vitamin B6) 100 mg 100 mg PO DAILY 02/21/24 Unknown History tablet Allergy/AdvReac Type Severity Reaction Status Date / Time adhesive tape Allergy Intermediate Rash Verified 02/21/24 12:32 Family History Father Myocardial infarction CAD (coronary artery disease) Mother CAD (coronary artery disease) CVA (cerebral vascular accident) Brother CAD (coronary artery disease) Surgical History History of coronary artery bypass surgery (~08/26/18) History of aortic valve replacement with bioprosthetic valve (~08/26/18) History of hernia repair History of squamous cell carcinoma excision History of basal cell carcinoma excision Social History Smoking Status: Never smoker Smokeless tobacco user: other alcohol intake: never substance use type: does not use caffeine: No ROS Review of Systems ROS Unobtainable: other Details: Unable to obtain from patient due to altered mental status and confusion Vital Signs Vital Signs Vital Signs: 02/21/24 12:33 02/21/24 12:43 02/21/24 14:32 Temperature 97.6 F L Temperature Source Oral Pulse Rate 79 89 Respiratory Rate 11 L 20 H Respiratory Effort Normal Respiratory Pattern Normal Blood Pressure 149/97 H Blood Pressure Mean 114 Pulse Ox 98 93 Oxygen Delivery Method Room Air Room Air Weight Weight: 91 kg Body Mass Index (BMI) 28.7 Physical Exam Const alert, no apparent distress and average body habitus; Negative for oriented x3 Constitutional Narrative: Frail, elderly, white male, lying in bed, oriented only to self, does not appear toxic, pleasantly confused General Appearance: cooperative HEENT normocephalic, head/scalp atraumatic and moist oral mucous membranes HEENT Narrative: Moderate hearing loss, mucous membranes are moist, dentition is poor Eyes EOMs intact bilaterally and conjunctivae normal Eyes Narrative: No scleral icterus Neck no lymphadenopathy and supple Neck Narrative: Trachea midline, no thyroid enlargement Resp normal respiratory effort, no retractions, no use of accessory muscles and clear to auscultation bilaterally Auscultation: Negative for rales, rhonchi or wheezes Cardio regular rate, regular rhythm, S1 normal heart sound, S2 normal heart sound, no murmurs, no rub, no gallops and no clicks GI normal to inspection, nondistended, normoactive bowel sounds, soft to palpation and non-tender Extremity no clubbing, cyanosis or edema Extremity Narrative: 2+ pedal pulses Skin Skin Narrative: 2 healing wounds on his right knee, skin is pale but no other significant lesions are noted, no adenopathy in the bilateral inguinal or axillary region Neuro moves all extremities and no focal motor deficits Neuro Narrative: Follows commands consistently, significant generalized weakness with no focal deficits Sensorium / Orientation: awake, alert and oriented to person Speech: speech normal Psych affect normal Psych Narrative: Pleasantly confused Results Lab / Micro Data 02/21/24 13:40 02/21/24 13:40 Labs: Laboratory Results - last 24 hr 02/21/24 13:40: WBC 11.0, RBC 3.54 L, Hgb 10.6 L, Hct 32.4 L, MCV 91.5, MCH 29.9, MCHC 32.7, RDW Std Deviation 55.3 H, RDW Coeff of Yony 16.9 H, Plt Count 283, MPV 10.8, Neut % (Auto) Not Reportable, Absolute Neuts (auto) 3.6, Absolute Lymphs (auto) 5.17 H, Total Counted 100, Neutrophils % (Manual) 30 L, Band Neutrophils % 3, Lymphocytes % (Manual) 47 H, Monocytes % (Manual) 3, Eosinophils % (Manual) 3, Metamyelocytes % 13 H, Myelocytes % 1 H, Diff Path Review May foll, Platelet Estimate ADEQUATE, Polychromasia RARE, Ovalocytes RARE, Sodium 137, Potassium 4.2, Chloride 106, Carbon Dioxide 25.0, Anion Gap 6, BUN 11, Creatinine 0.87, Estim Creat Clear Calc 65.30, Est GFR (MDRD) Af Amer 106, Est GFR (MDRD) Non-Af 87, BUN/Creatinine Ratio 12.6, Glucose 91, Calcium 9.7, Total Bilirubin 0.50, AST 51 H, ALT 57, Alkaline Phosphatase 148 H, Total Protein 6.8, Albumin 2.4 L, Globulin 4.4 H, Albumin/Globulin Ratio 0.5 L Micro: Microbiology 02/21/24 13:40 Mucosa - Nose SARS-CoV-2, Influenza & RSV (PCR) - Final Imaging Radiology Impression Chest X-Ray 02/21/24 13:54 IMPRESSION: Small bilateral pleural effusions left greater than right with findings suggestive of atelectasis and/or early infiltrate at the left lung base. Electronically Signed: Alberto Ramesh MD at 14:18 EST Reading Location ID and State: [address] [place] [address] , Service support , Assessment & Plan Assessment/Plan (1) Failure to thrive: (2) Lymphocytosis: (3) Weight loss: (4) Generalized weakness: (5) Toxic metabolic encephalopathy: PLAN: Plan Acute on chronic debility/generalized weakness/failure to thrive -Thus far workup is unrevealing -Check COVID-19/flu/RSV -PT/OT consultation -Case management/social work consultation for assistance with discharge planning -Patient will need pre-CERT prior to discharge if needs to be placed -Unfortunately family was not present at the time of admission Abnormal CBC -Patient with lymphocytosis, metamyelocytes and myelocytes -Check sed rate CRP -Check LDH -CT chest abdomen pelvis unrevealing -Check flow cytometry -Check peripheral smear -Check COVID/flu/RSV -Repeat CBC in a.m. Toxic/metabolic encephalopathy -Baseline is unclear and patient was only oriented to self at this time -Family was not at bedside to assist with baseline cognitive status however suspected may be somewhat impaired -Check TSH Weight loss -Supplements ordered -Dietitian consulted -Patient may qualify as severe malnutrition but will await dietitian input CAD/essential hypertension/hyperlipidemia/history of aortic valve stenosis/carotid artery stenosis -CABG x4: HOLLY to LAD, SVG to Diag, SVG to OM, SVG to RCA @ [facility] 08/26/18 -History of aortic valve replacement-->21 mm [facility] Trifecta valve -Last echocardiogram from 07/31/2020 showed EF of 70% with mild concentric LVH, right ventricular systolic pressure of 33 mmHg and a stable bioprosthetic aortic valve -Continue home Aldactone -continue home metoprolol -Continue with niacin -Continue home losartan -Continue home atorvastatin -Continue home aspirin -Continue home amlodipine History of GERD -Continue home PPI BPH with obstruction -Continue home Flomax Psoriatic arthritis -Continue folic acid -Continue arthritic medication -Hold home methotrexate Anxiety/depression -Continue home BuSpar DVT prophylaxis -Lovenox 40 mg subcu daily CODE STATUS -Full code but unverified as there was nobody to confirm this with at the time of admission -Will need to be addressed with family once available Charges/Coding Visit Charges Inpatient E&M: 88548 Init Hosp L2
[2024-02-21 15:52] LABS: Mucous, Urine 0 SEEN /hpf (<or=2+); Red Blood Cells-Urine 0 SEEN /hpf (0-5)
--- NOTE | 2024-02-21 16:28 | ED.RN ---
DAUGHTER CALLED AND NOTIFIED PT. WAS GOING TO BE ADMITTED. NEW NUMBER FOR SON OBTAINED AND GIVEN TO REGISTRATION TO BE ENTERED IN PT. CHART
--- NOTE | 2024-02-21 16:32 | ED.RN ---
Meme STORY NOTIFIED THIS NURSE THAT PT. PULLED OUT HIS IV FOR THE SECOND TIME. POST-SITE INTACT AND DRESSING APPLIED.
[2024-02-21 16:34] LABS: Color, Urine Yellow (Yellow); Glucose, Dipstick Normal (Normal); Ketone-Dipstick Negative (Negative); Leukocyte Esterase-Dipstick Negative /ul (Negative); Nitrite-Dipstick Negative (Negative); Occult Blood-Urine Negative /ul (Negative); Protein-Dipstick Negative (Negative); Urine Bilirubin Dipstick Negative (Negative); Urine Clarity Clear (Clear); Urine Urobilinogen Normal (Normal)
[2024-02-21 16:53] LABS: LDH 361 U/L (87-241)
[2024-02-21 17:12] LABS: Bacteria 1+ /hpf (None Seen); Squamous Epithelial Cells - UA 0-5 SEEN /hpf (0-5); White Blood Cells 0-5 SEEN /hpf (0-5)
[2024-02-21 19:39] LABS: Erythrocyte Sedimentation Rate 34 mm/hr (0-20)
[2024-02-21] MEDS: Acetaminophen 325 MG Tablet 650 MG PO (20:20)
[2024-02-21] MEDS: Atorvastatin Calcium 40 MG Tablet PO (20:21)
[2024-02-21] MEDS: Arthritis Pain Compound 60 CLICK TUBE TOPICAL (20:21)
[2024-02-21] MEDS: Losartan Potassium 50 MG Tablet PO (20:21)
[2024-02-21] MEDS: busPIRone 5 MG Tablet PO (20:21)
[2024-02-21] MEDS: Montelukast 10 MG Tablet PO (20:22)
[2024-02-21] MEDS: Metoprolol Tartrate 100 MG Tablet PO (20:22)
[2024-02-21] MEDS: Pantoprazole Sodium 20 MG Tablet PO (20:23)
--- NOTE | 2024-02-21 21:39 | CM.ED ---
Social Work SW spoke with patients daughter, Lillie, who stated they were no longer able to care for patient in home. Daughter stated it has been taking two people to stand and assist patient with his ADLs and that if they do not, than he sits in his chair all day. Daughter states they have been working on placement in a SNF, however the process is taking too long and they are no longer able to care for him in the home. Family is interested in [facility]. Maranda Rogers, MOTOR BUILDER ASSEMBLER, TANK WORKER
[2024-02-22] VITALS (7 sets, daily range): BP systolic 93–151; BP diastolic 66–86; PULSE 57–108; RESP 16–18; TEMP 36.3–37.1; O2SAT 98; BMI 28.0
[2024-02-22] MEDS: Acetaminophen 325 MG Tablet 650 MG PO ×3 (03:02→20:35)
[2024-02-22 06:34] LABS: Hematocrit 31.5 % (40-54); Hemoglobin 10.4 g/dL (13.0-16.5); Mean Corpuscular Hgb 29.8 pg (27.0-32.0); Mean Corpuscular Volume 90.3 fL (80-94); Mean Platelet Vol. 9.8 fl (6.2-12.0); POSITIVE COUNT YES; POSITIVE DIFFERENTIAL YES; POSITIVE MORPHOLOGY YES; RBC Distribution Width CV 17.1 % (11.6-14.6); RBC Distribution Width SD 55.1 fl (35.1-43.9); Red Blood Count 3.49 M/mm3 (4.6-6.2); White Blood Count 15.9 K/mm3 (4.4-11.0)
[2024-02-22 06:50] LABS: Platelet Count 782 K/mm3 (150-450)
[2024-02-22 06:51] LABS: International Normalized Ratio 1.2; Prothrombin Time (Protime)PT. 15.3 SECONDS (11.7-14.9)
[2024-02-22 06:59] LABS: Differential Indicated MANUAL DIFF
[2024-02-22 07:54] LABS: Neutrophil-Band 2 % (0-5); Neutrophil-Segmented 41 % (47-70); Total Cells Counted 100 (MANUAL DIFF)
[2024-02-22 07:55] LABS: Blast 1 % (0-0); Eosinophil 4 % (0-5); Lymphocyte 29 % (19-41); Metamyelocyte 5 % (0-1); Monocyte 14 % (0-10); Myelocyte 2 % (0-0); Platelet Estimate MKD INC (ADEQ); Promyelocyte 2 % (0-0)
[2024-02-22 07:56] LABS: Acanthocytes 1+; Ovalocyte 1+
[2024-02-22 07:57] LABS: Polychromasia 1+; Scan Smear per Review Criteria MANUAL DIFF
[2024-02-22 07:58] LABS: Absolute Lymphocyte Count 4.61 X10^3/uL (0.83-4.51); Absolute Neutrophil Count 6.8 X10^3/uL (2.0-7.7)
[2024-02-22 07:59] LABS: ALB/GLOB Ratio 0.5 RATIO (0.9-2.4); AST(SGOT) 38 U/L (15-37); Alanine Aminotransfer ALT/SGPT 46 U/L (16-61); Albumin, Serum 2.3 g/dL (3.2-5.0); Alkaline Phosphatase 142 U/L (45-117); Anion Gap 6 (5-15); BUN 12 mg/dL (7-18); BUN/Creat Ratio 15.6 RATIO (10-20); Calcium,Total 9.5 mg/dL (8.5-10.1); Chloride 109 mmol/L (98-107); Creatinine, Serum 0.77 mg/dL (0.70-1.30); EST Glomerular Filtration Rate 102 mL/min (>60); Est Glom Filt Rate - Afr Amer 123 mL/min (>60); Estimated Creatinine Clearance 70.27 ml/min; Globulin 4.3 g/dL (2.2-4.2); Glucose 91 mg/dL (74-106); Magnesium 1.9 mg/dL (1.6-2.6); Potassium 3.9 mmol/L (3.5-5.1); Protein, Total 6.6 g/dL (6.4-8.2); Sodium Level 139 mmol/L (136-145)
[2024-02-22] MEDS: Tamsulosin HCl 0.4 MG Capsule PO (09:40)
[2024-02-22] MEDS: Folic Acid 1 MG Tablet PO (09:42)
[2024-02-22] MEDS: busPIRone 5 MG Tablet PO ×2 (09:42→20:35)
[2024-02-22] MEDS: Pyridoxine HCl 100 MG Tablet PO (09:43)
[2024-02-22] MEDS: Pantoprazole Sodium 20 MG Tablet PO ×2 (09:43→20:36)
[2024-02-22] MEDS: Aspirin E.C. 81 MG Tablet PO (09:43)
[2024-02-22] MEDS: Ensure Plus High Protein 120 ML LIQUID PO ×2 (09:43→12:27)
[2024-02-22] MEDS: Arthritis Pain Compound 60 CLICK TUBE TOPICAL ×2 (09:44→20:36)
[2024-02-22] MEDS: Menthol/Lanolin/Calamine/Znox 113 GM Tube 1 APPLIC TOPICAL ×2 (09:44→20:36)
[2024-02-22] MEDS: Loratadine 10 MG Tablet PO (09:44)
--- NOTE | 2024-02-22 10:00 | PCM.PN.HOSP ---
Subjective Subjective Doing well, no issues overnight Objective Data Objective Data Vital Signs: Vital Signs Temp Pulse Resp BP Pulse Ox O2 Del Method 97.9 F 85 16 134/86 H 98 Room Air 02/22/24 02:20 02/22/24 02:20 02/22/24 02:20 02/22/24 02:20 02/22/24 02:20 02/22/24 02:20 Oxygen Delivery Method Room Air Weight: 195 lb 15.855 oz Body Mass Index (BMI) 28.0 Intake & Output: Intake and Output for Last 24 Hours 02/21/24 02/22/24 02/23/24 03:59 03:59 03:59 Output Total 900 / 900 250 / 250 Balance -900 / -900 -250 / -250 Lab / Micro Data 02/22/24 05:56 02/22/24 05:56 Labs: Laboratory Results - last 24 hr 02/21/24 13:40: WBC 11.0, RBC 3.54 L, Hgb 10.6 L, Hct 32.4 L, MCV 91.5, MCH 29.9, MCHC 32.7, RDW Std Deviation 55.3 H, RDW Coeff of Yony 16.9 H, Plt Count 283, MPV 10.8, Neut % (Auto) Not Reportable, Absolute Neuts (auto) 3.6, Absolute Lymphs (auto) 5.17 H, Total Counted 100, Neutrophils % (Manual) 30 L, Band Neutrophils % 3, Lymphocytes % (Manual) 47 H, Monocytes % (Manual) 3, Eosinophils % (Manual) 3, Metamyelocytes % 13 H, Myelocytes % 1 H, Diff Path Review May foll, Platelet Estimate ADEQUATE, Polychromasia RARE, Ovalocytes RARE, ESR Cancelled, Sodium 137, Potassium 4.2, Chloride 106, Carbon Dioxide 25.0, Anion Gap 6, BUN 11, Creatinine 0.87, Estim Creat Clear Calc 65.30, Est GFR (MDRD) Af Amer 106, Est GFR (MDRD) Non-Af 87, BUN/Creatinine Ratio 12.6, Glucose 91, Calcium 9.7, Total Bilirubin 0.50, AST 51 H, ALT 57, Alkaline Phosphatase 148 H, Lactate Dehydrogenase 361 H, C-React Prot Ext Range 59.10 H, Total Protein 6.8, Albumin 2.4 L, Globulin 4.4 H, Albumin/Globulin Ratio 0.5 L 02/21/24 15:38: Urine Color Yellow, Urine Clarity Clear, Urine pH 8.0, Ur Specific Solo 1.010, Urine Protein Negative, Urine Glucose (UA) Normal, Urine Ketones Negative, Urine Occult Blood Negative, Urine Nitrite Negative, Urine Bilirubin Negative, Urine Urobilinogen Normal, Ur Leukocyte Esterase Negative, Urine RBC 0 SEEN, Urine WBC 0-5 SEEN, Ur Squamous Epith Cells 0-5 SEEN, Urine Bacteria 1+, Urine Mucus 0 SEEN 02/21/24 19:15: ESR 34 H 02/22/24 05:56: WBC 15.9 H, RBC 3.49 L, Hgb 10.4 L, Hct 31.5 L, MCV 90.3, MCH 29.8, MCHC 33.0, RDW Std Deviation 55.1 H, RDW Coeff of Yony 17.1 H, Plt Count 782 H*, MPV 9.8, Immature Gran % (Auto) BALLPOINT PENS ASSEMBLER, Neut % (Auto) [employer]ALLPOINT [employer]ENS ASSEMBLER, Lymph % (Auto) [employer]ALLPOINT [employer]ENS ASSEMBLER, Rock % (Auto) BALLPOINT PENS ASSEMBLER, Eos % (Auto) [employer]ALL[employer]ENS ASSEMBLER, Baso % (Auto) [employer]ALLPOINT PENS ASSEMBLER, Absolute Neuts (auto) 6.8, Absolute Lymphs (auto) 4.61 H, Total Counted 100, Neutrophils % (Manual) 41 L, Band Neutrophils % 2, Lymphocytes % (Manual) 29, Monocytes % (Manual) 14 H, Eosinophils % (Manual) 4, Metamyelocytes % 5 H, Myelocytes % 2 H, Promyelocytes % 2 H, Blast Cells % 1 H*, Nucleated RBC % BALLPOINT PENS ASSEMBLER, Diff Path Review May foll, Platelet Estimate [employer], Polychromasia 1+, Ovalocytes 1+, Acanthocytes (Spur) 1+, PT 15.3 H, INR 1.2, Sodium 139, Potassium 3.9, Chloride 109 H, Carbon Dioxide 24.0, Anion Gap 6, BUN 12, Creatinine 0.77, Estim Creat Clear Calc 70.27, Est GFR (MDRD) Af Amer 123, Est GFR (MDRD) Non-Af 102, BUN/Creatinine Ratio 15.6, Glucose 91, Calcium 9.5, Magnesium 1.9, Total Bilirubin 0.60, AST 38 H, ALT 46, Alkaline Phosphatase 142 H, Total Protein 6.6, Albumin 2.3 L, Globulin 4.3 H, Albumin/Globulin Ratio 0.5 L, TSH 6.220 H Micro: Microbiology 02/21/24 22:15 Interface Orders SARS-CoV-2, Influenza & RSV (PCR) - Final 02/21/24 13:40 Mucosa - Nose SARS-CoV-2, Influenza & RSV (PCR) - Final Radiography Diagnostic Testing: Radiology Impression Chest X-Ray 02/21/24 13:54 IMPRESSION: Small bilateral pleural effusions left greater than right with findings suggestive of atelectasis and/or early infiltrate at the left lung base. Electronically Signed: Alberto Ramesh MD at 14:18 EST , Chest/Abdomen/Pelvis CT 02/21/24 15:49 IMPRESSION: Small bilateral pleural effusions. There is a pleural-based density in the basilar segment of the left upper lobe which may represent atelectasis. There are no acute abnormalities in the abdomen or pelvis. Electronically Signed: Valdemar Casanova MD at 16:57 EST , Physical Exam Narrative General: Alert, oriented x 1, Cooperative, No apparent distress HEENT: Atraumatic, PERRLA, EOMI, Normocephalic Oral: Moist Mucosa Neck: Supple, No JVD Lungs: Diminished, Normal air movement, No rhonchi, No wheeze, No rales Cardiovascular: Regular rate, Regular Rhythm, Normal S1, Normal S2, No murmurs Abdomen: Soft, Non Tender, Non-Distended, No Hepato-splenomegaly Extremities: No edema, Capillary Refill Less than 3 Seconds Skin: Wounds on his right knee do not appear infected at this time Musculoskeletal: No Tenderness to Palpation of Joints or Extremities Neurological: No focal neurological deficits, Motor Exam 5/5 strength throughout, Sensory exam intact to light touch and pain Psych/Mental Status: Normal Affect, Appropriate Assessment & Plan Assessment/Plan (1) Failure to thrive: (2) Lymphocytosis: (3) Weight loss: (4) Generalized weakness: (5) Toxic metabolic encephalopathy: PLAN: Plan 1. Acute on chronic debility with generalized weakness and failure to thrive with an inability to complete ADLs/toxic versus metabolic encephalopathy ? Unclear as to the leukocytosis ? Urine analysis and chest imaging are negative for infection ? Respiratory virus panel is negative ? PT/OT ? He does have an increase in his platelets as well as a white count now at 15, CRP and ESR both elevated as well ? Flow cytometry is pending as it is a send out ? Will recheck leukocytosis tomorrow morning if still elevated or he develops worsening vital signs, will add antibiotics ? 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 TSH was slightly elevated 2. CAD status post CABG/essential HTN/HLD/status post aortic valve replacement ? Continue with his home blood pressure medications ? Continue with Lipitor ? Will monitor make adjustments as necessary ? Echo from 07/31/2020 with an EF of 70% and RVSP of 33 mmHg 3. GERD ? Stable ? 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 Continue with Flomax 5. Psoriatic arthritis ? Continue on his home folic acid and arthritic medication ? His methotrexate has been held ? Question the possibility of flare leading to the inflammatory findings of blast cells with being consistent 6. Anxiety/depression ? Stable ? Continue with home medications DVT: Lovenox Charges/Coding Visit Charges Inpatient E&M: 73196 Subs Hosp L2
--- NOTE | 2024-02-22 11:30 | CASEMGMT ---
Addendum entered by Josselyn Fernando 02/22/24 11:41: PASRR completed and placed on chart. ESME Kumar Original Note: Social Work- SW coordinated with physician and DCA on pt preferences at discharge. Pt family began working on placement at [facility], facility has accepted and will begin precert. DCA to call family for [facility] and to provide update on SNF. Plan: [facility], [facility] level of care pending precert ESME Kumar
--- NOTE | 2024-02-22 11:40 | CASEMGMT ---
Addendum entered by Zuleika Sim 02/22/24 15:13: Call received from Leanne at [facility] asking when referral will be sent out. Advised that we are waiting on therapy evals so that precert can be submitted. Pts daughter (Lillie) updated also. Lillie states that if insurance declined, pt will be private pay and this has already been discussed with [facility]. Zuleika Sim DC Planning Asst. Original Note: Spoke with pts daughter (Lillie Parada) to complete [facility] form. [facility] form explained to daughter who voiced understanding. Original form placed in pt?s chart and copy placed in pts room. Lillie confirmed that they would like pt to discharge to [facility]. Process explained to daughter. She currently is without a vehicle and unable to make it in until her son is off of work. Provided her with unit and SW phone number. Zuleika Sim DC Planning Asst.
[2024-02-22 11:52] LABS: Pathologist Review Reviewed
[2024-02-22 11:54] LABS: Pathologist Review Reviewed
[2024-02-22] MEDS: Enoxaparin 40 MG/0.4 ML Syringe SC (12:27)
[2024-02-22] MEDS: 0.9% Normal Saline (1000mL) 1,000 ML 75 ML IV (12:27)
--- NOTE | 2024-02-22 12:39 | CHAPLAIN ---
Type of Pastoral Visit _x__ Initial Visit ___ Follow-up Visit ___ On-call Visit ___ General Patient Visit ___ Spiritual Assessment ___ Family Conference ___ Bereavement ___ Rapid Response ___ Code Blue ___ Other (describe below) Pastoral Care Referral From _x__ Patient ___ Family ___ Nurse ___ Physician ___ Design Technology Teacher ___ Tension Machine Operator ___ Other (describe below) Sacrament/Intervention _x__ Active listening ___ Anointing ___ Spiritism ___ Bereavement ___ Communion _x__ Melania exploration ___ _x__ Life review _x__ Prayer ___ Reconciliation ___ Sacrament of Sick _x__ Supportive presence ___ Wedding ___ Other (describe below) Pastoral Comments patient is welcoming; phone in room rings and this high lift mule operator is asked to answer it by the patient; a second phone call comes in later in the visit and again the high lift mule operator is asked to answer it for the patient; two very brief conversations with two family members by this patient; pt gives long detailed explanation of his situation, his family, and some life review; pt admits that he needs more help that what he can do on his own; pt also brings up his jewish beliefs and background; pt welcomes the presence and prayers of this high lift mule operator; pt asks for prayers for his family too
--- NOTE | 2024-02-22 15:54 | CASEMGMT ---
Discharge Planning Referral sent to [facility]. Zuleika Sim DC Planning Asst.
--- NOTE | 2024-02-22 16:02 | CASEMGMT ---
[facility] has accepted and will submit for precert. SW updated Zuleika Sim DC Planning Asst.
[2024-02-22] MEDS: Metoprolol Tartrate 100 MG Tablet PO (20:35)
[2024-02-22] MEDS: MELATONIN 3 MG TABLET PO (20:35)
[2024-02-22] MEDS: Montelukast 10 MG Tablet PO (20:36)
[2024-02-22] MEDS: Atorvastatin Calcium 40 MG Tablet PO (20:36)
[2024-02-22] MEDS: Losartan Potassium 50 MG Tablet PO (20:36)
[2024-02-22] MEDS: 0.9% Saline Lock 10 ML Syringe IV (20:39)
[2024-02-23] VITALS (8 sets, daily range): BP systolic 124–141; BP diastolic 68–89; PULSE 78–105; RESP 14–16; TEMP 36.4–36.9; O2SAT 95–100; BMI 28.0
[2024-02-23 05:39] LABS: Hematocrit 30.6 % (40-54); Hemoglobin 9.8 g/dL (13.0-16.5); Mean Corpuscular Hgb 29.4 pg (27.0-32.0); Mean Corpuscular Volume 91.9 fL (80-94); Mean Platelet Vol. 9.7 fl (6.2-12.0); POSITIVE COUNT YES; POSITIVE MORPHOLOGY YES; Platelet Count 620 K/mm3 (150-450); RBC Distribution Width CV 17.1 % (11.6-14.6); Red Blood Count 3.33 M/mm3 (4.6-6.2); White Blood Count 13.1 K/mm3 (4.4-11.0)
[2024-02-23 06:00] LABS: Differential Indicated MANUAL DIFF
[2024-02-23 06:17] LABS: Anion Gap 4 (5-15); BUN 11 mg/dL (7-18); BUN/Creat Ratio 13.2 RATIO (10-20); Calcium,Total 9.6 mg/dL (8.5-10.1); Chloride 111 mmol/L (98-107); Creatinine, Serum 0.83 mg/dL (0.70-1.30); EST Glomerular Filtration Rate 92 mL/min (>60); Est Glom Filt Rate - Afr Amer 112 mL/min (>60); Estimated Creatinine Clearance 67.73 ml/min; Glucose 95 mg/dL (74-106); Potassium 3.6 mmol/L (3.5-5.1); Sodium Level 140 mmol/L (136-145)
[2024-02-23 08:29] LABS: Blast 1 % (0-0); Eosinophil 4 % (0-5); Lymphocyte 41 % (19-41); Metamyelocyte 2 % (0-1); Monocyte 6 % (0-10); Neutrophil-Band 6 % (0-5); Neutrophil-Segmented 40 % (47-70); Total Cells Counted 100 (MANUAL DIFF)
[2024-02-23 08:30] LABS: Ovalocyte 1+; Red Cell Morphology N CHROM NORMAL (NORM C&C)
[2024-02-23 08:31] LABS: Platelet Estimate MKD INC (ADEQ)
[2024-02-23 08:32] LABS: Absolute Lymphocyte Count 5.37 X10^3/uL (0.83-4.51)
[2024-02-23] MEDS: Pyridoxine HCl 100 MG Tablet PO (09:58)
[2024-02-23] MEDS: Aspirin E.C. 81 MG Tablet PO (09:58)
[2024-02-23] MEDS: amLODIPine 2.5 MG Tablet PO (09:58)
[2024-02-23] MEDS: Folic Acid 1 MG Tablet PO (09:58)
[2024-02-23] MEDS: Spironolactone 25 MG Tablet PO (09:58)
[2024-02-23] MEDS: Ensure Plus High Protein 120 ML LIQUID PO (09:58)
[2024-02-23] MEDS: busPIRone 5 MG Tablet PO ×2 (09:59→21:08)
[2024-02-23] MEDS: Tamsulosin HCl 0.4 MG Capsule PO (09:59)
[2024-02-23] MEDS: Loratadine 10 MG Tablet PO (09:59)
[2024-02-23] MEDS: Pantoprazole Sodium 20 MG Tablet PO ×2 (09:59→21:09)
[2024-02-23] MEDS: Metoprolol Tartrate 100 MG Tablet PO ×2 (09:59→21:09)
[2024-02-23] MEDS: Menthol/Lanolin/Calamine/Znox 113 GM Tube 1 APPLIC TOPICAL ×2 (09:59→21:10)
[2024-02-23] MEDS: Losartan Potassium 50 MG Tablet PO ×2 (09:59→21:09)
[2024-02-23] MEDS: Arthritis Pain Compound 60 CLICK TUBE TOPICAL ×2 (10:00→21:08)
[2024-02-23] MEDS: Enoxaparin 40 MG/0.4 ML Syringe SC (10:03)
--- NOTE | 2024-02-23 11:30 | PN.HOSP_ITS ---
Subjective Subjective No issues overnight, white count improving without antibiotics Objective Data Objective Data Vital Signs: Vital Signs Temp Pulse Resp BP Pulse Ox O2 Del Method 97.8 F 92 14 141/76 H 100 Room Air 02/23/24 09:54 02/23/24 09:59 02/23/24 09:54 02/23/24 09:54 02/23/24 09:54 02/23/24 09:54 Oxygen Delivery Method Room Air Weight: 195 lb 15.855 oz Body Mass Index (BMI) 28.0 Intake & Output: Intake and Output for Last 24 Hours 02/22/24 02/23/24 02/24/24 03:59 03:59 03:59 Intake Total 2500 / 2500 Output Total 900 / 900 550 / 550 Balance -900 / -900 1950 / 1950 Lab / Micro Data 02/23/24 05:04 02/23/24 05:04 Labs: Laboratory Results - last 24 hr 02/21/24 13:40: Diff Path Review Reviewed 02/22/24 05:56: Diff Path Review Reviewed 02/23/24 05:04: WBC 13.1 H, RBC 3.33 L, Hgb 9.8 L, Hct 30.6 L, MCV 91.9, MCH 29.4, MCHC 32.0, RDW Std Deviation 56.0 H, RDW Coeff of Yony 17.1 H, Plt Count 620 H, MPV 9.7, Neut % (Auto) Not Reportable, Absolute Neuts (auto) 6.0, A bsolute Lymphs (auto) 5.37 H, Total Counted 100, Neutrophils % (Manual) 40 L, B and Neutrophils % 6 H, Lymphocytes % (Manual) 41, Monocytes % (Manual) 6, Eosinophils % (Manual) 4, Metamyelocytes % 2 H, Blast Cells % 1 H*, Diff Path Review May foll, Platelet Estimate MKD INC, RBC Morphology N CHROM, Ovalocytes 1+, Sodium 140, Potassium 3.6, Chloride 111 H, Carbon Dioxide 25.0, Anion Gap 4 L, BUN 11, Creatinine 0.83, Estim Creat Clear Calc 67.73, Est GFR (MDRD) Af Amer 112, Est GFR (MDRD) Non-Af 92, BUN/Creatinine Ratio 13.2, Glucose 95, Calcium 9.6 Micro: Microbiology 02/21/24 22:15 Interface Orders SARS-CoV-2, Influenza & RSV (PCR) - Final 02/21/24 13:40 Mucosa - Nose SARS-CoV-2, Influenza & RSV (PCR) - Final Physical Exam Narrative General: Alert, oriented x 1, Cooperative, No apparent distress HEENT: Atraumatic, PERRLA, EOMI, Normocephalic Oral: Moist Mucosa Neck: Supple, No JVD Lungs: Diminished, Normal air movement, No rhonchi, No wheeze, No rales Cardiovascular: Regular rate, Regular Rhythm, Normal S1, Normal S2, No murmurs Abdomen: Soft, Non Tender, Non-Distended, No Hepato-splenomegaly Extremities: No edema, Capillary Refill Less than 3 Seconds Skin: Wounds on his right knee do not appear infected at this time Musculoskeletal: No Tenderness to Palpation of Joints or Extremities Neurological: No focal neurological deficits, Motor Exam 5/5 strength throughout, Sensory exam intact to light touch and pain Psych/Mental Status: Flat Assessment & Plan Assessment/Plan (1) Failure to thrive: (2) Lymphocytosis: (3) Weight loss: (4) Generalized weakness: (5) Toxic metabolic encephalopathy: PLAN: Plan 1. Acute on chronic debility with generalized weakness and failure to thrive with an inability to complete ADLs/toxic versus metabolic encephalopathy ? Unclear as to the leukocytosis, it is improving without antibiotics ? Urine analysis and chest imaging are negative for infection ? Respiratory virus panel is negative ? PT/OT ? Platelets have also improved, CRP and ESR both elevated as well ? Flow cytometry is pending as it is a send out ? 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 TSH was slightly elevated 2. CAD status post CABG/essential HTN/HLD/status post aortic valve replacement ? Continue with his home blood pressure medications ? Continue with Lipitor ? Will monitor make adjustments as necessary ? Echo from 07/31/2020 with an EF of 70% and RVSP of 33 mmHg 3. GERD ? Stable ? 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 Continue with Flomax 5. Psoriatic arthritis ? Continue on his home folic acid and arthritic medication ? His methotrexate has been held ? Question the possibility of flare leading to the inflammatory findings of blast cells with being consistent 6. Anxiety/depression ? Stable ? Continue with home medications DVT: Lovenox Charges/Coding Visit Charges Inpatient E&M: 18397 Subs Hosp L2
[2024-02-23 14:23] LABS: Pathologist Review Reviewed
--- NOTE | 2024-02-23 17:24 | NURSING ---
ST UNABLE TO ASSESS PT TODAY. MOUTH CARE GIVEN AT THIS TIME AND PT ALLOWED TO HAVE A DRINK OF WATER. PT TOLERATED WELL.
[2024-02-23] MEDS: Montelukast 10 MG Tablet PO (21:08)
[2024-02-23] MEDS: Atorvastatin Calcium 40 MG Tablet PO (21:09)
[2024-02-23] MEDS: MELATONIN 3 MG TABLET PO (21:18)
[2024-02-23] MEDS: Acetaminophen 325 MG Tablet 650 MG PO (21:35)
[2024-02-24] VITALS (8 sets, daily range): BP systolic 120–132; BP diastolic 55–68; PULSE 75–103; RESP 15–16; TEMP 36.4–36.8; O2SAT 96–99; BMI 28.0
[2024-02-24 06:40] LABS: Hematocrit 29.2 % (40-54); Hemoglobin 9.3 g/dL (13.0-16.5); Mean Corp Hgb Conc 31.8 g/dL (32-36); Mean Corpuscular Hgb 29.3 pg (27.0-32.0); Mean Corpuscular Volume 92.1 fL (80-94); Mean Platelet Vol. 9.8 fl (6.2-12.0); NRBC Flagged by Analyzer 0.1 % (0-5); POSITIVE COUNT YES; POSITIVE DIFFERENTIAL YES; POSITIVE MORPHOLOGY YES; Platelet Count 612 K/mm3 (150-450); RBC Distribution Width SD 56.6 fl (35.1-43.9); Red Blood Count 3.17 M/mm3 (4.6-6.2); White Blood Count 14.4 K/mm3 (4.4-11.0)
[2024-02-24 06:52] LABS: Anion Gap 6 (5-15); BUN 15 mg/dL (7-18); BUN/Creat Ratio 16.6 RATIO (10-20); Calcium,Total 9.5 mg/dL (8.5-10.1); Chloride 110 mmol/L (98-107); EST Glomerular Filtration Rate 84 mL/min (>60); Est Glom Filt Rate - Afr Amer 102 mL/min (>60); Estimated Creatinine Clearance 62.49 ml/min; Glucose 81 mg/dL (74-106); Potassium 3.7 mmol/L (3.5-5.1); Sodium Level 139 mmol/L (136-145)
[2024-02-24 07:33] LABS: Differential Indicated SCAN CRITERIA MET
[2024-02-24 08:08] LABS: Basophil 1 % (0-1); Lymphocyte 36 % (19-41); Metamyelocyte 1 % (0-1); Monocyte 5 % (0-10); Myelocyte 3 % (0-0); Neutrophil-Band 1 % (0-5); Neutrophil-Segmented 53 % (47-70); Total Cells Counted 100 (MANUAL DIFF)
[2024-02-24 08:09] LABS: Ovalocyte 1+; Platelet Estimate MOD INC (ADEQ); Polychromasia 1+; Reactive Lymphocyte 2+
[2024-02-24 08:10] LABS: Scan Smear per Review Criteria MANUAL DIFF
[2024-02-24 08:15] LABS: Absolute Lymphocyte Count 5.19 X10^3/uL (0.83-4.51); Absolute Neutrophil Count 7.8 X10^3/uL (2.0-7.7); Basophil# 0.14 X10^3/uL; Lymphocyte # 5.19 X10^3/ul (0.83-4.51); Monocyte# 0.72 X10^3/uL; Neutrophil # 7.79 X10^3/uL (2.7-7.7)
--- NOTE | 2024-02-24 09:53 | CASEMGMT ---
Addendum entered by Zuleika Smi 02/24/24 09:58: Follow up call to Leanne @ who stated that she did not see my msg to start precert on 02/21 and will submit it now. SW updated. Zuleika Sim DC Planning Asst. Original Note: [facility] has accepted pt and will submit for precert. SW updated. Zuleika Sim DC Planning Asst.
[2024-02-24] MEDS: Aspirin E.C. 81 MG Tablet PO (09:56)
[2024-02-24] MEDS: Tamsulosin HCl 0.4 MG Capsule PO (09:56)
[2024-02-24] MEDS: Loratadine 10 MG Tablet PO (09:56)
[2024-02-24] MEDS: Pyridoxine HCl 100 MG Tablet PO (09:56)
[2024-02-24] MEDS: busPIRone 5 MG Tablet PO ×2 (09:56→21:09)
[2024-02-24] MEDS: Pantoprazole Sodium 20 MG Tablet PO ×2 (09:56→21:11)
[2024-02-24] MEDS: Spironolactone 25 MG Tablet PO (09:56)
[2024-02-24] MEDS: Folic Acid 1 MG Tablet PO (09:56)
[2024-02-24] MEDS: amLODIPine 2.5 MG Tablet PO (09:56)
[2024-02-24] MEDS: Losartan Potassium 50 MG Tablet PO ×2 (09:56→21:11)
[2024-02-24] MEDS: Ensure Plus High Protein 120 ML LIQUID PO ×2 (09:57→16:54)
[2024-02-24] MEDS: Enoxaparin 40 MG/0.4 ML Syringe SC (09:57)
[2024-02-24] MEDS: Menthol/Lanolin/Calamine/Znox 113 GM Tube 1 APPLIC TOPICAL ×2 (09:57→21:41)
[2024-02-24] MEDS: Arthritis Pain Compound 60 CLICK TUBE TOPICAL ×2 (09:57→21:41)
[2024-02-24] MEDS: Metoprolol Tartrate 100 MG Tablet PO ×2 (10:02→21:08)
[2024-02-24 10:57] LABS: Free T3 1.3 pg/mL (2.18-3.98); T4 Free Direct 1.57 ng/dL (0.76-1.46)
[2024-02-24] MEDS: Acetaminophen 325 MG Tablet 650 MG PO ×2 (11:32→17:01)
--- NOTE | 2024-02-24 12:02 | PCM.PN.HOSP ---
Subjective Subjective No issues overnight, unclear as to why he continues to have reactive leukocytosis, no signs of infection Objective Data Objective Data Vital Signs: Vital Signs Temp Pulse Resp BP Pulse Ox O2 Del Method 97.8 F 102 H 16 120/65 99 Room Air 02/24/24 10:00 02/24/24 10:02 02/24/24 10:00 02/24/24 10:00 02/24/24 10:00 02/24/24 10:00 Oxygen Delivery Method Room Air Weight: 196 lb 3.382 oz Body Mass Index (BMI) 28.0 Intake & Output: Intake and Output for Last 24 Hours 02/23/24 02/24/24 02/25/24 03:59 03:59 03:59 Intake Total 2500 / 2500 350 / 350 150 / 150 Output Total 550 / 550 150 / 150 200 / 200 Balance 1950 / 1950 200 / 200 -50 / -50 Lab / Micro Data 02/24/24 05:50 02/24/24 05:50 Labs: Laboratory Results - last 24 hr 02/23/24 05:04: Diff Path Review Reviewed 02/24/24 05:50: WBC 14.4 H, RBC 3.17 L, Hgb 9.3 L, Hct 29.2 L, MCV 92.1, MCH 29.3, MCHC 31.8 L, RDW Std Deviation 56.6 H, RDW Coeff of Yony 17.0 H, Plt Count 612 H, MPV 9.8, Immature Gran % (Auto) [employer]LECTRICAL SUPERVISOR, Neut % (Auto) ELECTRICAL SUPERVISOR, Lymph % (Auto) ELECTRICAL SUPERVISOR, [place] % (Auto) ELECTRICAL SUPERVISOR, Eos % (Auto) ELECTRICAL SUPERVISOR, Baso % (Auto) ELECTRICAL SUPERVISOR, Absolute Neuts (auto) 7.8 H, Absolute Lymphs (auto) 5.19 H, Total Counted 100, Neutrophils % (Manual) 53, Band Neutrophils % 1, Lymphocytes % (Manual) 36, Monocytes % (Manual) 5, Basophils % (Manual) 1, Metamyelocytes % 1, Myelocytes % 3 H, Nucleated RBC % 0.1, Reactive Lymphocytes 2+, Platelet Estimate MOD INC, Polychromasia 1+, Ovalocytes 1+, Sodium 139, Potassium 3.7, Chloride 110 H, Carbon Dioxide 23.0, Anion Gap 6, BUN 15, Creatinine 0.90, Estim Creat Clear Calc 62.49, Est GFR (MDRD) Af Amer 102, Est GFR (MDRD) Non-Af 84, BUN/Creatinine Ratio 16.6, Glucose 81, Calcium 9.5, Free T4 1.57 H, Free T3 pg/dL 1.3 L Micro: Microbiology 02/21/24 22:15 Interface Orders SARS-CoV-2, Influenza & RSV (PCR) - Final 02/21/24 13:40 Mucosa - Nose SARS-CoV-2, Influenza & RSV (PCR) - Final Physical Exam Narrative General: Alert, oriented x 1, Cooperative, No apparent distress HEENT: Atraumatic, PERRLA, EOMI, Normocephalic Oral: Moist Mucosa Neck: Supple, No JVD Lungs: Diminished, Normal air movement, No rhonchi, No wheeze, No rales Cardiovascular: Regular rate, Regular Rhythm, Normal S1, Normal S2, No murmurs Abdomen: Soft, Non Tender, Non-Distended, No Hepato-splenomegaly Extremities: No edema, Capillary Refill Less than 3 Seconds Skin: Wounds on his right knee do not appear infected at this time Musculoskeletal: No Tenderness to Palpation of Joints or Extremities Neurological: No focal neurological deficits, moves all extremities Psych/Mental Status: Flat Assessment & Plan Assessment/Plan (1) Failure to thrive: (2) Lymphocytosis: (3) Weight loss: (4) Generalized weakness: (5) Toxic metabolic encephalopathy: PLAN: Plan 1. Acute on chronic debility with generalized weakness and failure to thrive with an inability to complete ADLs/toxic versus metabolic encephalopathy ? Leukocytosis behaviors and consistent with an acute infection and currently chest x-ray and UA are unremarkable ? Urine analysis and chest imaging are negative for infection ? Respiratory virus panel is negative ? PT/OT ? Platelets have also improved, CRP and ESR both elevated as well ? Flow cytometry is pending as it is a send out ? He does have 1% blast cells, discussed with oncology who will follow the flow cytometry as an outpatient and recommends follow-up with them in 1 month after discharge ? TSH was slightly elevated, will obtain a T3 and T4 today 2. CAD status post CABG/essential HTN/HLD/status post aortic valve replacement ? Continue with his home blood pressure medications ? Continue with Lipitor ? Will monitor make adjustments as necessary ? Echo from 07/31/2020 with an EF of 70% and RVSP of 33 mmHg 3. GERD ? Stable ? 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 Continue with Flomax 5. Psoriatic arthritis ? Continue on his home folic acid and arthritic medication ? His methotrexate has been held ? Question the possibility of flare leading to the inflammatory findings of blast cells with being consistent 6. Anxiety/depression ? Stable ? Continue with home medications DVT: Lovenox Charges/Coding Visit Charges Inpatient E&M: 24356 Subs Hosp L2
--- NOTE | 2024-02-24 12:13 | CT_ITS ---
STUDY: CT FACIAL BONES WITH CONTRAST REASON FOR EXAM: Male, 88 years old. Facial infection/osteo? -- multiple teeth extraction in november RADIATION DOSAGE (If Supplied By Facility): CTDIvol = ( 29.38 ) mGy, DLP = ( 613.57 ) mGycm TECHNIQUE: The patient was scanned in a multi detector CT scanner. Transaxial imaging was performed following the intravenous administration of IV 100mL Isovue-370. Sagittal and coronal images were reconstructed. Individualized dose optimization techniques were used for this CT. COMPARISON: None. FINDINGS: Normal soft tissue structures. Normal orbital bustillo and orbital contents. Normal nasal bones and anterior nasal spine. Multiple lucencies are seen in the sockets of the feet in the central portion of the mandible. No teeth are seen. This may represent cavities/possible infectious cause. There is no demonstrated fracture. Mucosal thickening of the left maxillary sinus. CT/Sinus/Facial Bone WITH Contras IMPRESSION: Findings suggestive of a infectious process/cavities in the region of the mandible as discussed. The patient is edentulous. Electronically Signed: Alberto Ramesh MD at 14:19 EST ,
[2024-02-24 13:49] LABS: Pathologist Review Reviewed
[2024-02-24] MEDS: 0.9% Normal Saline (100mL Bag) 100 ML 15 ML IV (15:23)
[2024-02-24] MEDS: 0.9% Saline Lock 10 ML Syringe IV ×2 (15:24→21:47)
[2024-02-24] MEDS: Ampicillin/Sulbactam 3 GM in 0.9% Normal Saline (100mL MB+) 100 ML IV ×2 (15:32→21:47)
[2024-02-24] MEDS: Montelukast 10 MG Tablet PO (21:08)
[2024-02-24] MEDS: Atorvastatin Calcium 40 MG Tablet PO (21:11)
[2024-02-25] VITALS (9 sets, daily range): BP systolic 105–135; BP diastolic 55–81; PULSE 79–93; RESP 15–18; TEMP 36.5–36.9; O2SAT 96–99; BMI 28.3
[2024-02-25 06:05] LABS: Hematocrit 29.7 % (40-54); Hemoglobin 9.6 g/dL (13.0-16.5); Mean Corp Hgb Conc 32.3 g/dL (32-36); Mean Corpuscular Hgb 29.9 pg (27.0-32.0); Mean Corpuscular Volume 92.5 fL (80-94); Mean Platelet Vol. 9.8 fl (6.2-12.0); POSITIVE COUNT YES; POSITIVE DIFFERENTIAL YES; POSITIVE MORPHOLOGY YES; Platelet Count 593 K/mm3 (150-450); RBC Distribution Width CV 16.8 % (11.6-14.6); RBC Distribution Width SD 56.2 fl (35.1-43.9); Red Blood Count 3.21 M/mm3 (4.6-6.2); White Blood Count 15.7 K/mm3 (4.4-11.0)
[2024-02-25 06:16] LABS: Differential Indicated MANUAL DIFF
[2024-02-25] MEDS: Ampicillin/Sulbactam 3 GM in 0.9% Normal Saline (100mL MB+) 100 ML IV ×3 (06:45→21:18)
[2024-02-25 06:49] LABS: Anion Gap 5 (5-15); BUN 13 mg/dL (7-18); BUN/Creat Ratio 14.7 RATIO (10-20); Calcium,Total 9.8 mg/dL (8.5-10.1); Chloride 110 mmol/L (98-107); Creatinine, Serum 0.88 mg/dL (0.70-1.30); EST Glomerular Filtration Rate 86 mL/min (>60); Est Glom Filt Rate - Afr Amer 104 mL/min (>60); Glucose 96 mg/dL (74-106); Potassium 3.8 mmol/L (3.5-5.1); Sodium Level 138 mmol/L (136-145)
[2024-02-25 07:18] LABS: Lymphocyte 42 % (19-41); Monocyte 3 % (0-10); Myelocyte 1 % (0-0); Neutrophil-Band 1 % (0-5); Neutrophil-Segmented 53 % (47-70); Nucleated Red Bld Cells,Manual 1 % (0-5); Total Cells Counted 100 (MANUAL DIFF)
[2024-02-25 07:19] LABS: Platelet Estimate SLT INC (ADEQ); Red Cell Morphology NORM C+C NORMAL (NORM C&C)
[2024-02-25 07:20] LABS: Absolute Neutrophil Count 8.5 X10^3/uL (2.0-7.7)
[2024-02-25] MEDS: Enoxaparin 40 MG/0.4 ML Syringe SC (08:04)
[2024-02-25] MEDS: Spironolactone 25 MG Tablet PO (08:05)
[2024-02-25] MEDS: Pyridoxine HCl 100 MG Tablet PO (08:05)
[2024-02-25] MEDS: busPIRone 5 MG Tablet PO ×2 (08:05→21:20)
[2024-02-25] MEDS: Aspirin E.C. 81 MG Tablet PO (08:05)
[2024-02-25] MEDS: Folic Acid 1 MG Tablet PO (08:05)
[2024-02-25] MEDS: Losartan Potassium 50 MG Tablet PO ×2 (08:06→21:21)
[2024-02-25] MEDS: amLODIPine 2.5 MG Tablet PO (08:06)
[2024-02-25] MEDS: Loratadine 10 MG Tablet PO (08:06)
[2024-02-25] MEDS: Metoprolol Tartrate 100 MG Tablet PO ×2 (08:06→21:21)
[2024-02-25] MEDS: Pantoprazole Sodium 20 MG Tablet PO ×2 (08:06→21:20)
[2024-02-25] MEDS: Tamsulosin HCl 0.4 MG Capsule PO (08:06)
[2024-02-25] MEDS: Arthritis Pain Compound 60 CLICK TUBE TOPICAL ×2 (08:07→21:19)
[2024-02-25] MEDS: Menthol/Lanolin/Calamine/Znox 113 GM Tube 1 APPLIC TOPICAL ×2 (08:17→21:20)
[2024-02-25] MEDS: Ensure Plus High Protein 120 ML LIQUID PO (08:17)
--- NOTE | 2024-02-25 09:02 | PCM.PN.HOSP ---
Subjective Subjective Doing well, no issues overnight Objective Data Objective Data Vital Signs: Vital Signs Temp Pulse Resp BP Pulse Ox O2 Del Method 98.5 F 92 15 135/71 H 97 Room Air 02/25/24 03:00 02/25/24 08:06 02/25/24 03:00 02/25/24 03:00 02/25/24 07:59 02/25/24 07:59 Oxygen Delivery Method Room Air Weight: 197 lb 8.547 oz Body Mass Index (BMI) 28.3 Intake & Output: Intake and Output for Last 24 Hours 02/24/24 02/25/24 02/26/24 03:59 03:59 03:59 Intake Total 350 / 350 1026.25 / 1026.25 120.75 / 120.75 Output Total 150 / 150 1925 / 1925 50 / 50 Balance 200 / 200 -898.75 / -898.75 70.75 / 70.75 Lab / Micro Data 02/25/24 05:33 02/25/24 05:33 Labs: Laboratory Results - last 24 hr 02/24/24 05:50: Diff Path Review Reviewed, Free T4 1.57 H, Free T3 pg/dL 1.3 L 02/25/24 05:33: WBC 15.7 H, RBC 3.21 L, Hgb 9.6 L, Hct 29.7 L, MCV 92.5, MCH 29.9, MCHC 32.3, RDW Std Deviation 56.2 H, RDW Coeff of Yony 16.8 H, Plt Count 593 H, MPV 9.8, Neut % (Auto) Not Reportable, Absolute Neuts (auto) 8.5 H, Absolute Lymphs (auto) 6.60 H, Total Counted 100, Neutrophils % (Manual) 53, Band Neutrophils % 1, Lymphocytes % (Manual) 42 H, Monocytes % (Manual) 3, Myelocytes % 1 H, Nucleated RBCs/100 WBC 1, Diff Path Review May delfino, Platelet Estimate T INC, RBC Morphology NORM C+C, Sodium 138, Potassium 3.8, Chloride 110 H, Carbon Dioxide 23.0, Anion Gap 5, BUN 13, Creatinine 0.88, Estim Creat Clear Calc 64.10, Est GFR (MDRD) Af Amer 104, Est GFR (MDRD) Non-Af 86, BUN/Creatinine Ratio 14.7, Glucose 96, Calcium 9.8 Micro: Microbiology 02/21/24 22:15 Interface Orders SARS-CoV-2, Influenza & RSV (PCR) - Final 02/21/24 13:40 Mucosa - Nose SARS-CoV-2, Influenza & RSV (PCR) - Final Radiography Diagnostic Testing: Radiology Impression Facial/Sinus 02/24/24 12:13 IMPRESSION: Findings suggestive of a infectious process/cavities in the region of the mandible as discussed. The patient is edentulous. Electronically Signed: Alberto Ramesh MD at 14:19 EST , Physical Exam Narrative General: Alert, oriented x 1, Cooperative, No apparent distress HEENT: Atraumatic, PERRLA, EOMI, Normocephalic Oral: Moist Mucosa Neck: Supple, No JVD Lungs: Diminished, Normal air movement, No rhonchi, No wheeze, No rales Cardiovascular: Regular rate, Regular Rhythm, Normal S1, Normal S2, No murmurs Abdomen: Soft, Non Tender, Non-Distended, No Hepato-splenomegaly Extremities: No edema, Capillary Refill Less than 3 Seconds Skin: Wounds on his right knee do not appear infected at this time Musculoskeletal: No Tenderness to Palpation of Joints or Extremities Neurological: No focal neurological deficits, moves all extremities Psych/Mental Status: Flat Assessment & Plan Assessment/Plan (1) Failure to thrive: (2) Lymphocytosis: (3) Weight loss: (4) Generalized weakness: (5) Toxic metabolic encephalopathy: PLAN: Plan 1. Acute on chronic debility with generalized weakness and failure to thrive with an inability to complete ADLs/metabolic encephalopathy secondary to dental infection ?Family relayed a recent history of dental extractions and multiple courses of antibiotics facial CT demonstrates findings consistent with possible infection continue with Unasyn ? Urine analysis and chest imaging are negative for infection ? Respiratory virus panel is negative ? PT/OT ? Platelets have also improved, CRP and ESR both elevated as well ? Flow cytometry is pending as it is a send out ? He does have 1% blast cells, discussed with oncology who will follow the flow cytometry as an outpatient and recommends follow-up with them in 1 month after discharge ? TSH was slightly elevated, T3 is low but T4 is high 2. CAD status post CABG/essential HTN/HLD/status post aortic valve replacement ? Continue with his home blood pressure medications ? Continue with Lipitor ? Will monitor make adjustments as necessary ? Echo from 07/31/2020 with an EF of 70% and RVSP of 33 mmHg 3. GERD ? Stable ? 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 Continue with Flomax 5. Psoriatic arthritis ? Continue on his home folic acid and arthritic medication ? His methotrexate has been held ? Question the possibility of flare leading to the inflammatory findings of blast cells with being consistent 6. Anxiety/depression ? Stable ? Continue with home medications DVT: Lovenox Charges/Coding Visit Charges Inpatient E&M: 10806 Subs Hosp L2
--- NOTE | 2024-02-25 12:18 | CASEMGMT ---
Social Work- Pt reports that he does not have directives in place. Pt declines additional information at this time. ESME Kumar
--- NOTE | 2024-02-25 12:29 | CASEMGMT ---
[facility] has obtained auth to admit. SW updated. Zuleika Sim DC Planning Asst.
--- NOTE | 2024-02-25 14:20 | CASEMGMT ---
Social Work- SW advised that pt has precert and can discharge when medically ready. Physician reports that pt is not medically ready today. Green sheet with transport placed on the chart in the event that pt discharges over the weekend. Plan: [facility]; skilled level of care ESME Kumar
--- NOTE | 2024-02-25 14:23 | CASEMGMT ---
[facility] notified that pt may return over the weekend. Green sheet and transport form placed on chart. Zuleika Sim DC Planning Asst.
[2024-02-25] MEDS: Acetaminophen 325 MG Tablet 650 MG PO (17:47)
[2024-02-25] MEDS: 0.9% Saline Lock 10 ML Syringe IV (17:47)
[2024-02-25] MEDS: Montelukast 10 MG Tablet PO (21:21)
[2024-02-25] MEDS: Atorvastatin Calcium 40 MG Tablet PO (21:22)
[2024-02-26] MEDS: 0.9% Saline Lock 10 ML Syringe IV ×2 (05:55→22:39)
[2024-02-26] MEDS: Ampicillin/Sulbactam 3 GM in 0.9% Normal Saline (100mL MB+) 100 ML IV ×3 (05:55→22:28)
[2024-02-26 06:00] VITALS: BP 149/72; PULSE 66; RESP 18; TEMP 36.4; O2SAT 98; BMI 28.2
[2024-02-26 06:00] LABS: Absolute Lymphocyte Count 6.06 X10^3/uL (0.83-4.51); Absolute Neutrophil Count 7.5 X10^3/uL (2.0-7.7); Basophil# 0.18 X10^3/uL; Basophil% 1.1 % (0-1); Eosinophil# 0.21 X10^3/uL; Eosinophils% 1.3 % (0-5); Hematocrit 30.4 % (40-54); Hemoglobin 9.7 g/dL (13.0-16.5); Lymphocyte # 6.06 X10^3/ul (0.83-4.51); Lymphocyte % 38.1 % (19-41); Mean Corp Hgb Conc 31.9 g/dL (32-36); Mean Corpuscular Hgb 29.5 pg (27.0-32.0); Mean Corpuscular Volume 92.4 fL (80-94); Mean Platelet Vol. 9.7 fl (6.2-12.0); Monocyte# 1.22 X10^3/uL; Monocyte% 7.7 % (0-10); NRBC Flagged by Analyzer 0.1 % (0-5); Neutrophil # 7.53 X10^3/uL (2.7-7.7); Neutrophil % 47.3 % (47-70); POSITIVE DIFFERENTIAL YES; Platelet Count 541 K/mm3 (150-450); RBC Distribution Width CV 17.1 % (11.6-14.6); RBC Distribution Width SD 56.4 fl (35.1-43.9); Red Blood Count 3.29 M/mm3 (4.6-6.2); White Blood Count 15.9 K/mm3 (4.4-11.0)
[2024-02-26 08:01] VITALS: BP 141/53; PULSE 77; RESP 16; TEMP 37.1; O2SAT 99
[2024-02-26] MEDS: busPIRone 5 MG Tablet PO ×2 (08:16→22:39)
[2024-02-26] MEDS: Losartan Potassium 50 MG Tablet PO ×2 (08:16→22:41)
[2024-02-26 08:17] VITALS: PULSE 77
[2024-02-26] MEDS: Metoprolol Tartrate 100 MG Tablet PO ×2 (08:17→22:40)
[2024-02-26] MEDS: Pyridoxine HCl 100 MG Tablet PO (08:17)
[2024-02-26] MEDS: Folic Acid 1 MG Tablet PO (08:17)
[2024-02-26] MEDS: amLODIPine 2.5 MG Tablet PO (08:17)
[2024-02-26] MEDS: Enoxaparin 40 MG/0.4 ML Syringe SC (08:17)
[2024-02-26] MEDS: Aspirin E.C. 81 MG Tablet PO (08:18)
[2024-02-26] MEDS: Spironolactone 25 MG Tablet PO (08:18)
[2024-02-26] MEDS: Tamsulosin HCl 0.4 MG Capsule PO (08:18)
[2024-02-26] MEDS: Menthol/Lanolin/Calamine/Znox 113 GM Tube 1 APPLIC TOPICAL ×2 (08:19→22:40)
[2024-02-26] MEDS: Arthritis Pain Compound 60 CLICK TUBE TOPICAL ×2 (08:19→22:39)
[2024-02-26] MEDS: Loratadine 10 MG Tablet PO (08:20)
[2024-02-26] MEDS: Pantoprazole Sodium 20 MG Tablet PO ×2 (08:20→22:41)
[2024-02-26] MEDS: Ensure Plus High Protein 120 ML LIQUID PO ×3 (08:25→18:38)
[2024-02-26] MEDS: Acetaminophen 325 MG Tablet 650 MG PO (08:44)
--- NOTE | 2024-02-26 09:53 | PCM.PN.HOSP ---
Subjective Subjective Much more alert today, doing well Objective Data Objective Data Vital Signs: Vital Signs Temp Pulse Resp BP Pulse Ox O2 Del Method 98.8 F 77 16 141/53 H 99 Room Air 02/26/24 08:01 02/26/24 08:17 02/26/24 08:01 02/26/24 08:01 02/26/24 08:01 02/26/24 08:06 Oxygen Delivery Method Room Air Weight: 197 lb 5.019 oz Body Mass Index (BMI) 28.2 Intake & Output: Intake and Output for Last 24 Hours 02/25/24 02/26/24 02/27/24 03:59 03:59 03:59 Intake Total 1026.25 / 1026.25 344.75 / 344.75 112 / 112 Output Total 1925 / 1925 425 / 425 150 / 150 Balance -898.75 / -898.75 -80.25 / -80.25 -38 / -38 Lab / Micro Data 02/26/24 05:34 02/25/24 05:33 Labs: Laboratory Results - last 24 hr 02/22/24 06:57: Miscellaneous Test COMMENT 02/26/24 05:34: WBC 15.9 H, RBC 3.29 L, Hgb 9.7 L, Hct 30.4 L, MCV 92.4, MCH 29.5, MCHC 31.9 L, RDW Std Deviation 56.4 H, RDW Coeff of Yony 17.1 H, Plt Count 541 H, MPV 9.7, Immature Gran % (Auto) 4.500 H, Neut % (Auto) 47.3, Lymph % (Auto) 38.1, [place] % (Auto) 7.7, Eos % (Auto) 1.3, Baso % (Auto) 1.1 H, Absolute Neuts (auto) 7.5, Absolute Lymphs (auto) 6.06 H, Nucleated RBC % 0.1 Micro: Microbiology 02/21/24 22:15 Interface Orders SARS-CoV-2, Influenza & RSV (PCR) - Final 02/21/24 13:40 Mucosa - Nose SARS-CoV-2, Influenza & RSV (PCR) - Final Physical Exam Narrative General: Alert, oriented x 3, Cooperative, No apparent distress HEENT: Atraumatic, PERRLA, EOMI, Normocephalic Oral: Moist Mucosa Neck: Supple, No JVD Lungs: Diminished, Normal air movement, No rhonchi, No wheeze, No rales Cardiovascular: Regular rate, Regular Rhythm, Normal S1, Normal S2, No murmurs Abdomen: Soft, Non Tender, Non-Distended, No Hepato-splenomegaly Extremities: No edema, Capillary Refill Less than 3 Seconds Skin: Wounds on his right knee do not appear infected at this time Musculoskeletal: No Tenderness to Palpation of Joints or Extremities Neurological: No focal neurological deficits, moves all extremities Psych/Mental Status: Normal affect, appropriate Assessment & Plan Assessment/Plan (1) Failure to thrive: (2) Lymphocytosis: (3) Weight loss: (4) Generalized weakness: (5) Toxic metabolic encephalopathy: PLAN: Plan 1. Acute on chronic debility with generalized weakness and failure to thrive with an inability to complete ADLs/metabolic encephalopathy secondary to dental infection ?Family relayed a recent history of dental extractions and multiple courses of antibiotics facial CT demonstrates findings consistent with possible infection continue with Unasyn ? Urine analysis and chest imaging are negative for infection ? Respiratory virus panel is negative ? PT/OT ? Platelets have also improved, CRP and ESR both elevated as well ? Flow cytometry is pending as it is a send out ? He does have 1% blast cells, discussed with oncology who will follow the flow cytometry as an outpatient and recommends follow-up with them in 1 month after discharge ? TSH was slightly elevated, T3 is low but T4 is high 2. CAD status post CABG/essential HTN/HLD/status post aortic valve replacement ? Continue with his home blood pressure medications ? Continue with Lipitor ? Will monitor make adjustments as necessary ? Echo from 07/31/2020 with an EF of 70% and RVSP of 33 mmHg 3. GERD ? Stable ? 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 Continue with Flomax 5. Psoriatic arthritis ? Continue on his home folic acid and arthritic medication ? His methotrexate has been held ? Question the possibility of flare leading to the inflammatory findings of blast cells with being consistent 6. Anxiety/depression ? Stable ? Continue with home medications DVT: Lovenox Charges/Coding Visit Charges Inpatient E&M: 85735 Subs Hosp L2
[2024-02-26 14:00] VITALS: BP 137/71; PULSE 81; RESP 16; TEMP 37; O2SAT 97
[2024-02-26] MEDS: Montelukast 10 MG Tablet PO (22:27)
[2024-02-26 22:33] VITALS: BP 132/71; PULSE 83; RESP 16; TEMP 37.2; O2SAT 98
[2024-02-26 22:40] VITALS: BP 132/71; PULSE 83
[2024-02-26] MEDS: Atorvastatin Calcium 40 MG Tablet PO (22:41)
[2024-02-27 04:09] LABS: Absolute Lymphocyte Count 4.34 X10^3/uL (0.83-4.51); Absolute Neutrophil Count 6.6 X10^3/uL (2.0-7.7); Basophil# 0.12 X10^3/uL; Basophil% 0.9 % (0-1); Eosinophil# 0.17 X10^3/uL; Eosinophils% 1.3 % (0-5); Hematocrit 29.6 % (40-54); Hemoglobin 9.4 g/dL (13.0-16.5); Lymphocyte # 4.34 X10^3/ul (0.83-4.51); Lymphocyte % 34.2 % (19-41); Mean Corp Hgb Conc 31.8 g/dL (32-36); Mean Corpuscular Hgb 29.4 pg (27.0-32.0); Mean Corpuscular Volume 92.5 fL (80-94); Mean Platelet Vol. 9.5 fl (6.2-12.0); Monocyte# 1.03 X10^3/uL; Monocyte% 8.1 % (0-10); NRBC Flagged by Analyzer 0 % (0-5); Neutrophil # 6.56 X10^3/uL (2.7-7.7); Neutrophil % 51.9 % (47-70); Platelet Count 414 K/mm3 (150-450); RBC Distribution Width CV 17.1 % (11.6-14.6); RBC Distribution Width SD 56.1 fl (35.1-43.9); White Blood Count 12.7 K/mm3 (4.4-11.0)
[2024-02-27 05:15] VITALS: BP 136/80; PULSE 83; RESP 16; TEMP 36.8; O2SAT 98
[2024-02-27] MEDS: Acetaminophen 325 MG Tablet 650 MG PO (05:27)
[2024-02-27] MEDS: Ampicillin/Sulbactam 3 GM in 0.9% Normal Saline (100mL MB+) 100 ML IV (05:41)
[2024-02-27 08:11] VITALS: BP 133/75; PULSE 88; RESP 16; TEMP 36.4; O2SAT 97
[2024-02-27 08:13] VITALS: BMI 28.3
[2024-02-27 08:22] VITALS: PULSE 88
[2024-02-27] MEDS: Loratadine 10 MG Tablet PO (08:22)
[2024-02-27] MEDS: Folic Acid 1 MG Tablet PO (08:22)
[2024-02-27] MEDS: Aspirin E.C. 81 MG Tablet PO (08:22)
[2024-02-27] MEDS: Metoprolol Tartrate 100 MG Tablet PO (08:22)
[2024-02-27] MEDS: Tamsulosin HCl 0.4 MG Capsule PO (08:22)
[2024-02-27] MEDS: Arthritis Pain Compound 60 CLICK TUBE TOPICAL (08:23)
[2024-02-27] MEDS: Menthol/Lanolin/Calamine/Znox 113 GM Tube 1 APPLIC TOPICAL (08:23)
[2024-02-27] MEDS: Spironolactone 25 MG Tablet PO (08:23)
[2024-02-27] MEDS: Pyridoxine HCl 100 MG Tablet PO (08:24)
[2024-02-27] MEDS: Enoxaparin 40 MG/0.4 ML Syringe SC (08:24)
[2024-02-27] MEDS: busPIRone 5 MG Tablet PO (08:24)
[2024-02-27] MEDS: Pantoprazole Sodium 20 MG Tablet PO (08:24)
[2024-02-27] MEDS: Losartan Potassium 50 MG Tablet PO (08:25)
[2024-02-27] MEDS: amLODIPine 2.5 MG Tablet PO (08:25)
[2024-02-27] MEDS: Ensure Plus High Protein 120 ML LIQUID PO (08:30)
--- NOTE | 2024-02-27 09:43 | PCM.TXEXTCAR ---
Diet Diet Order/Speech Therapy: 02/24/24 11:29 Diet: Regular - General Food consistency:: Soft & Bite Sized Liquid Consistency:: Regular/Thin Type of Dietary Supplement:: Ensure Compact Diet Comments: medications in applesauce Routine Orders/Code Status Routine Lab Work: CBC and BMP DC O2, CPAP, BIPAP needs Home O2 Discharge instructions: No Wound(s) right knee: Wound Type: scabs Left Great toe: Wound Type: Abrasion Therapies Physical Therapy: Eval and Treat Occupational Therapy: Eval and Treat Problem/Diagnosis (1) Failure to thrive: Status: Acute (2) Lymphocytosis: Status: Acute Code(s): D72.820 - Lymphocytosis (symptomatic) (3) Weight loss: Status: Acute Code(s): R63.4 - Abnormal weight loss (4) Generalized weakness: Status: Acute Code(s): R53.1 - Weakness (5) Toxic metabolic encephalopathy: Status: Acute Code(s): G92.8 - Other toxic encephalopathy Plan 1. Acute on chronic debility with generalized weakness and failure to thrive with an inability to complete ADLs/metabolic encephalopathy secondary to dental infection ?Family relayed a recent history of dental extractions and multiple courses of antibiotics facial CT demonstrates findings consistent with possible infection continue with Unasyn ? Urine analysis and chest imaging are negative for infection ? Respiratory virus panel is negative ? PT/OT ? Platelets have also improved, CRP and ESR both elevated as well ? Flow cytometry is pending as it is a send out ? He does have 1% blast cells, discussed with oncology who will follow the flow cytometry as an outpatient and recommends follow-up with them in 1 month after discharge ? TSH was slightly elevated, T3 is low but T4 is high 2. CAD status post CABG/essential HTN/HLD/status post aortic valve replacement ? Continue with his home blood pressure medications ? Continue with Lipitor ? Will monitor make adjustments as necessary ? Echo from 07/31/2020 with an EF of 70% and RVSP of 33 mmHg 3. GERD ? Stable ? 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 Continue with Flomax 5. Psoriatic arthritis ? Continue on his home folic acid and arthritic medication ? His methotrexate has been held ? Question the possibility of flare leading to the inflammatory findings of blast cells with being consistent 6. Anxiety/depression ? Stable ? Continue with home medications DVT: Lovenox Allergies/Procedures Done in Hospital Allergies adhesive tape Allergy (Intermediate, Verified 02/21/24 12:32) Rash Procedures: None Type of Care/Length of Stay Estimated LOS: Convalescent Care Less Than 30 days Type of Care Needed: Skilled Rehab Potential: Fair Prognosis: Fair Additional Orders/Day of Discharge Day of Discharge: 02/27/24 Dietary and Speech Recommendations Dietitian Recommendations/Changes: Continue Regular soft foods diet to optimize oral intakes. Continue 120mL ensure plus high protein TID with medpass to provide supplemental energy. Will discontinue Ensure Compact with meals. Will order magic cup TID with meals to provide supplemental energy. Discharge Plan Admission Admit Date/Time: 02/23/24 15:40 Attending Provider: Deandre Rodriges Primary Care Provider: Roe Stack Consulting Providers: Lyndsey Benavidez Instructions Additional Instructions / Restrictions: Follow-up with your dentist for evaluation the areas in your tooth extraction which seem to be infected. Discharge Orders/Prescriptions Prescriptions: New amoxicillin-pot clavulanate 875-125 mg tablet 1 tab PO BID 14 Days Qty: 28 0RF Continued omeprazole 20 mg capsule,delayed release(DR/EC) 20 mg PO BID tamsulosin 0.4 mg capsule 0.4 mg PO DAILY montelukast 10 mg tablet 10 mg PO QPM folic acid 1 mg tablet 1 mg PO DAILY lutein 40 mg capsule 40 mg PO DAILY losartan 50 mg tablet 50 mg PO BID Qty: 180 3RF metoprolol tartrate 100 mg tablet 100 mg PO BID Qty: 180 3RF atorvastatin 40 mg tablet 40 mg PO QHS Qty: 90 3RF spironolactone 25 mg tablet 25 mg PO DAILY acetaminophen [Tylenol] 325 mg tablet 650 mg PO Q6H PRN (Reason: fever or pain) amlodipine 2.5 mg tablet 2.5 mg PO DAILY glucosamine-chondroitin 900 mg tablet 900 mg PO DAILY potassium chloride 20 mEq tablet extended release 20 meq PO DAILY buspirone 5 mg tablet 5 mg PO BID methotrexate sodium 25 mg/mL solution 50 mg subcut QWEEK levocetirizine 5 mg tablet 5 mg PO DAILY pyridoxine (vitamin B6) 100 mg tablet 100 mg PO DAILY niacin 500 mg tablet 500 mg PO DAILY aspirin [Adult Aspirin Regimen] 81 mg tablet,delayed release (DR/EC) 81 mg PO DAILY Qty: 90 3RF Referrals / Follow Up: Roe Stack MD [Primary Care Provider] - Disposition Disposition (needs filled in before D/C Order can be placed): Jail Facility
--- NOTE | 2024-02-27 09:47 | DS.PCM_ITS ---
Providers Date of Admission: 02/23/24 Primary Care Physician: Dr. Roe Stack MD Reason For Visit: FAILURE TO THRIVE/ HYMPHOCYTOSIS Diagnosis Discharge Diagnosis (1) Failure to thrive: Status: Acute (2) Lymphocytosis: Status: Acute Code(s): D72.820 - Lymphocytosis (symptomatic) (3) Weight loss: Status: Acute Code(s): R63.4 - Abnormal weight loss (4) Generalized weakness: Status: Acute Code(s): R53.1 - Weakness (5) Toxic metabolic encephalopathy: Status: Acute Code(s): G92.8 - Other toxic encephalopathy Medications at Discharge Home Medications folic acid 1 mg tablet 1 mg PO DAILY 06/29/18 lutein 40 mg capsule 40 mg PO DAILY 06/29/18 montelukast 10 mg tablet 10 mg PO QPM 06/29/18 omeprazole 20 mg capsule,delayed release 20 mg PO BID 06/29/18 tamsulosin 0.4 mg capsule 0.4 mg PO DAILY 06/29/18 niacin 500 mg tablet 500 mg PO DAILY 10/04/18 atorvastatin 40 mg tablet 40 mg PO QHS #90 tabs 10/17/18 losartan 50 mg tablet 50 mg PO BID #180 tabs 12/29/18 metoprolol tartrate 100 mg tablet 100 mg PO BID #180 tabs 12/29/18 aspirin 81 mg tablet,delayed release (Adult Aspirin Regimen) 81 mg PO DAILY #90 tabs 01/04/19 spironolactone 25 mg tablet 25 mg PO DAILY 06/07/19 acetaminophen 325 mg tablet (Tylenol) 650 mg PO Q6H PRN fever or pain 03/01/20 amlodipine 2.5 mg tablet 2.5 mg PO DAILY 03/01/20 antiarthritic combination no.2 900 mg tablet (glucosamine-chondroitin) 900 mg PO DAILY 03/01/20 potassium chloride 20 mEq tablet,extended release 20 meq PO DAILY 03/01/20 buspirone 5 mg tablet 5 mg PO BID 02/21/24 levocetirizine 5 mg tablet 5 mg PO DAILY 02/21/24 methotrexate sodium 25 mg/mL injection solution 50 mg subcut QWEEK 02/21/24 pyridoxine (vitamin B6) 100 mg tablet 100 mg PO DAILY 02/21/24 amoxicillin 875 mg-potassium clavulanate 125 mg tablet 1 tab PO BID 14 days #28 tabs 02/27/24 Hospital Course Operations None Procedures None Summary of Care Provided Minutes Spent on Discharge: 37 Hospital Course: Per HPI: RICHARD MASTERS is a 88 M who presented to the emergency department at [facility] on 02/21/2024 with worsening weakness. All of my history is obtained from the emergency department note as the patient was unable to answer questions consistently due to confusion and family had left the emergency department. Per documentation, the patient was brought in for generalized weakness, decreased p.o. intake to do for liquids and solids and family was unable to care for him at home. Vital signs on presentation showed temperature of 96.6, heart rate 79, respiratory rate 11, blood pressure was 149/97 and pulse ox was 98% on room air. CBC showed a normocytic anemia with a hemoglobin of 10.6 but baseline is unclear as he said no recent lab. His differential showed an elevation of absolute lymphocytes and neutropenia with lymphocytosis of 47% and metamyelocytes and myelocytes present. Chemistry panel was overtly unremarkable other than a mildly elevated AST. UA was completely unremarkable. Chest x-ray shows small bilateral effusions left greater than right suggestive of atelectasis or early infiltrate in the left lung base. Given his abnormal differential/lymphocytosis a CT of the abdomen and pelvis was performed and showed small pleural-based consolidation in the basilar segment of the left upper lobe with no mass, moderate coronary artery calcification, no adenopathy and no other acute abnormalities. Hospital Course: 1. Acute on chronic debility with generalized weakness and failure to thrive in the setting of metabolic encephalopathy from dental infection?88-year-old male presented from the long term with altered mental status. It was unclear as to the etiology at the time of admission however his daughter states that he had a tooth extraction in November with multiple rounds of antibiotics that did not seem to work. CT of the face demonstrated continued infections in the locations of the extractions. Initially we were not sure exactly why he was having leukocytosis and thrombocytosis however with the institution of [facility] his white count has improved to 12.7 and his platelet count has normalized. Also he is alert and oriented x 3 today. Other workup for infection was negative, his chest x-ray was unremarkable and his urine analysis was normal. No respiratory viruses. Will continue with Augmentin p.o. twice daily for 14 days and in the meantime have him follow-up with dentistry as an outpatient to look at these locations for washout. I discussed with him the plan for discharge today he expressed understanding there is benefits of going to the long term and would like to go today. 2. Coronary artery disease status post CABG, essential hypertension, hyperlipidemia, status post aortic valve replacement, GERD, BPH with obstruction, psoriatic arthritis, anxiety, depression are all chronic medical conditions which complicate his care. His home medications were continued where appropriate. Of note his TSH was slightly elevated, his T4 was high but his T3 was low I do recommend outpatient evaluation and recheck in a couple weeks. Physical Exam Narrative General: Alert, oriented x 3, Cooperative, No apparent distress HEENT: Atraumatic, PERRLA, EOMI, Normocephalic Oral: Moist Mucosa Neck: Supple, No JVD Lungs: Diminished, Normal air movement, No rhonchi, No wheeze, No rales Cardiovascular: Regular rate, Regular Rhythm, Normal S1, Normal S2, No murmurs Abdomen: Soft, Non Tender, Non-Distended, No Hepato-splenomegaly Extremities: No edema, Capillary Refill Less than 3 Seconds Skin: Wounds on his right knee do not appear infected at this time Musculoskeletal: No Tenderness to Palpation of Joints or Extremities Neurological: No focal neurological deficits, moves all extremities Psych/Mental Status: Normal affect, appropriate Weight / BMI Weight Weight: 198 lb 3.129 oz Body Mass Index (BMI) 28.3 ABG / Lab / Microbiology Data 02/27/24 04:03 02/25/24 05:33 Laboratory: Laboratory Results - last 24 hr 02/27/24 04:03: WBC 12.7 H, RBC 3.20 L, Hgb 9.4 L, Hct 29.6 L, MCV 92.5, MCH 29.4, MCHC 31.8 L, RDW Std Deviation 56.1 H, RDW Coeff of Yony 17.1 H, Plt Count 414, MPV 9.5, Immature Gran % (Auto) 3.600 H, Neut % (Auto) 51.9, Lymph % (Auto) 34.2, Wise % (Auto) 8.1, Eos % (Auto) 1.3, Baso % (Auto) 0.9, Absolute Neuts (auto) 6.6, Absolute Lymphs (auto) 4.34, Nucleated RBC % 0 Microbiology: Microbiology 02/21/24 22:15 Interface Orders SARS-CoV-2, Influenza & RSV (PCR) - Final 02/21/24 13:40 Mucosa - Nose SARS-CoV-2, Influenza & RSV (PCR) - Final D/C Instructions DC O2, CPAP, BIPAP Needs Home O2 Discharge instructions: No Meaningful Use Info Meaningful Use Meaningful Use Diagnoses (Choose all that apply): None applicable Ischemic Stroke Statin Dosing Therapy Reference: STATIN DOSE THERAPY REFERENCE: * Patients > 75 years receive moderate or high dose statin therapy. * Patients 75 years or YOUNGER should receive HIGH intensity statin dose unless contraindicated. You will be required to document reason for non-treatment if statin daily dose does not meet guidelines. HIGH DOSE STATIN THERAPY DAILY Atorvastatin > than or = to 40 mg Rosuvastatin > than or = to 20 mg Amlodipine + Atorvastatin > than or = to 2.5/40 mg Ezetimibe + Simvastatin 10/80 mg Simvastatin 80mg Discharge Plan Admission Admit Date/Time: 02/23/24 15:40 Attending Provider: Deandre Rodriges Primary Care Provider: Roe Stack Consulting Providers: Lyndsey Benavidez Instructions Additional Instructions / Restrictions: Follow-up with your dentist for evaluation the areas in your tooth extraction which seem to be infected. Discharge Orders/Prescriptions Prescriptions: New amoxicillin-pot clavulanate 875-125 mg tablet 1 tab PO BID 14 Days Qty: 28 0RF Continued omeprazole 20 mg capsule,delayed release(DR/EC) 20 mg PO BID tamsulosin 0.4 mg capsule 0.4 mg PO DAILY montelukast 10 mg tablet 10 mg PO QPM folic acid 1 mg tablet 1 mg PO DAILY lutein 40 mg capsule 40 mg PO DAILY losartan 50 mg tablet 50 mg PO BID Qty: 180 3RF metoprolol tartrate 100 mg tablet 100 mg PO BID Qty: 180 3RF atorvastatin 40 mg tablet 40 mg PO QHS Qty: 90 3RF spironolactone 25 mg tablet 25 mg PO DAILY acetaminophen [Tylenol] 325 mg tablet 650 mg PO Q6H PRN (Reason: fever or pain) amlodipine 2.5 mg tablet 2.5 mg PO DAILY glucosamine-chondroitin 900 mg tablet 900 mg PO DAILY potassium chloride 20 mEq tablet extended release 20 meq PO DAILY buspirone 5 mg tablet 5 mg PO BID methotrexate sodium 25 mg/mL solution 50 mg subcut QWEEK levocetirizine 5 mg tablet 5 mg PO DAILY pyridoxine (vitamin B6) 100 mg tablet 100 mg PO DAILY niacin 500 mg tablet 500 mg PO DAILY aspirin [Adult Aspirin Regimen] 81 mg tablet,delayed release (DR/EC) 81 mg PO DAILY Qty: 90 3RF Referrals / Follow Up: Roe Stack MD [Primary Care Provider] - Disposition Disposition (needs filled in before D/C Order can be placed): [facility] Facility Charges/Coding Visit Charges Inpatient E&M: 94514 Disch Hosp >30min
[2024-02-27 12:51] VITALS: BP 137/82; PULSE 84; RESP 16; TEMP 36.4; O2SAT 98
[2024-02-28 15:58] LABS: Pathologist Review Reviewed
== END 2024-02-27 12:50 | disposition skilled nursing facility (03) | DRG 640 ==
LOC: ED 16:32 → MS3 16:53
PROVIDERS: Admitting Provider Internal Medicine; Emergency Provider Emergency Medicine; PCP Family Medicine; Visit Provider Family Medicine
DX: R62.7 Adult failure to thrive (principal); G93.41 Metabolic encephalopathy; N13.8 Other obstructive and reflux uropathy; L40.50 Arthropathic psoriasis, unspecified; I10 Essential (primary) hypertension; F32.A Depression, unspecified; Z95.2 Presence of prosthetic heart valve; K04.7 Periapical abscess without sinus; E78.00 Pure hypercholesterolemia, unspecified; I25.10 Atherosclerotic heart disease of native coronary artery without angina pectoris; K21.9 Gastro-esophageal reflux disease without esophagitis; F41.9 Anxiety disorder, unspecified; N40.1 Benign prostatic hyperplasia with lower urinary tract symptoms; R53.1 Weakness; R53.81 Other malaise; R94.6 Abnormal results of thyroid function studies; Z95.1 Presence of aortocoronary bypass graft; Z68.28 Body mass index [BMI] 28.0-28.9, adult; Z79.82 Long term (current) use of aspirin; Z79.899 Other long term (current) drug therapy
CPT/HCPCS: 36415; 70487; 71046; 71250; 74176; 80048; 80053; 81001; 83615; 83735; 84439; 84443; 84481; 85025; 85610; 85652; 86140; 87631; 92526; 92610; 94668; 97116; 97162; 97166; 97530; 97535; 97802; 99285; 99406; Q9967; A4216; J0295